=== PATIENT | female | born 1930 | race African-American/Black ===

== ENCOUNTER 2017-02-17 17:08 | Inpatient (IN) | payer MEDICARE, MEDICAID ==
[2017-02-17] MEDS ORDERED: Dextrose 50% Abboject 50 ML SYRINGE SLOW IVP PRN (19:26)
[2017-02-17] MEDS ORDERED: HumaLOG 300 UNITS/3 ML VIAL SC PRN (19:26)
[2017-02-17] MEDS ORDERED: Acetaminophen 325 MG TAB PO PRN ×2 (19:26→21:40)
[2017-02-17] MEDS ORDERED: Acetaminophen 650 MG Suppository PR PRN (19:26)
[2017-02-17] MEDS ORDERED: Dextrose 5% in Water 1,000 ML IV PRN (19:26)
[2017-02-17 19:45] LABS: Prothrombin Time 17.5 SEC (12.0-14.7)
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
[2017-02-17] MEDS ORDERED: Ondansetron HCl/PF 4 MG/2 ML Vial IVP PRN (21:40)
[2017-02-17] MEDS ORDERED: Ondansetron ODT 4 MG TAB SL PRN (21:40)
[2017-02-18] MEDS: Diltiazem HCl 125 MG, Admixture Fee 1 EACH in Sodium Chloride 0.9% 100 ML IVPB SCH ×2 (01:27→16:16)
[2017-02-18] MEDS ORDERED: Metoprolol Tartrate 25 MG TAB PO SCH (04:30)
[2017-02-18] MEDS ORDERED: Metoprolol Tartrate 5 MG/5 ML VIAL IVP SCH (04:30)
[2017-02-18 05:21] LABS: #Eosinphils 0.1 thou/uL (0.0-0.7); #Lymphocytes 1.6 thou/uL (1.20-3.40); #Monocytes 0.4 thou/uL (0.11-0.59); #Neutrophils 1.6 thou/uL (1.40-6.50); %Basophils 0.4 % (0.0-1.0); %Eosinophils 2.9 % (0.0-10.0); %Lymphocytes 43.6 % (21.0-51.0); %Monocytes 10.6 % (0.0-10.0); Hematocrit 37.5 % (36.0-47.0); Mean Platelet Volume 9.2 fL (7.4-10.4); White Blood Cell (WBC) Count 3.7 thou/uL (4.8-10.8)
[2017-02-18 05:33] LABS: Anion Gap 11 mmol/L (10-20); BUN (Urea Nitrogen) 27 mg/dL (9.8-20.1); Calc. Creatinine Clearance 23 mL/min (70-130); Calcium 8.8 mg/dL (7.8-10.44); Carbon Dioxide 26 mmol/L (23-31); Chloride 109 mmol/L (98-107); Estimated GFR-MDRD 55
--- NOTE | 2017-02-18 10:04 | PDOC.PN ---
- Subjective Encounter Start Date: 02/18/17 Encounter Start Time: 07:00 Pt seen for followup re: atrial flutter. Denies chest pain, shortness of breath , fevers or chills. - Objective MAR Reviewed: Yes Vital Signs & Weight: Vital Signs (12 hours) Temp Pulse Resp BP Pulse Ox 02/18/17 04:38 97.8 F 129 H 18 111/71 96 02/18/17 00:01 97.7 F 145 H 18 96 02/18/17 00:00 136 H 121/58 L Weight Weight 90 lb I&O: 02/17/17 02/18/17 02/19/17 06:59 06:59 06:59 Intake Total 290 Output Total 450 Balance -160 Result Diagrams: 02/18/17 04:31 02/18/17 04:31 EKG Reviewed by me: Yes (Tele: atrial flutter) Phys Exam - Physical Examination Constitutional: NAD HEENT: moist MMs, oral pharynx no lesions Neck: supple Respiratory: no wheezing, no rales, no rhonchi, clear to auscultation bilateral Cardiovascular: RRR, no rub Gastrointestinal: soft, positive bowel sounds Musculoskeletal: pulses present Neurological: non-focal, moves all 4 limbs Lymphatic: no nodes Psychiatric: normal affect Deviation from normal: Oriented to person and place, not to time Skin: no rash, normal turgor, cap refill <2 seconds Dx/Plan (1) Atrial flutter Code(s): I48.92 - UNSPECIFIED ATRIAL FLUTTER Status: Acute (2) COPD with hypoxia Code(s): J44.9 - CHRONIC OBSTRUCTIVE PULMONARY DISEASE, UNSPECIFIED; R09.02 - HYPOXEMIA Status: Chronic (3) Chronic diastolic heart failure Code(s): I50.32 - CHRONIC DIASTOLIC (CONGESTIVE) HEART FAILURE Status: Chronic (4) Chronic kidney disease stage 3 Code(s): N18.3 - CHRONIC KIDNEY DISEASE, STAGE 3 (MODERATE) Status: Chronic (5) Dyslipidemia Code(s): E78.5 - HYPERLIPIDEMIA, UNSPECIFIED Status: Chronic (6) Hypertension Code(s): I10 - ESSENTIAL (PRIMARY) HYPERTENSION Status: Chronic (7) Chronic respiratory failure with hypoxia Code(s): J96.11 - CHRONIC RESPIRATORY FAILURE WITH HYPOXIA Status: Chronic (8) Protein-calorie malnutrition Code(s): E46 - UNSPECIFIED PROTEIN-CALORIE MALNUTRITION Status: Chronic - Plan DVT proph w/SCDs * . Continue cardizem drip. Awaiting cardiology input. Continue insulin sliding scale. Consult dietitian, check albumin. O2 PRN. Review of Systems - Review of Systems Constitutional: negative: Fever, Chills, Sweats, Weakness, Malaise Respiratory: negative: Cough, Dry, Shortness of Breath, Hemoptysis, SOB with Excertion, Pleuritic Pain, Sputum, Wheezing Cardiovascular: negative: Chest Pain, Palpitations, Orthopnea, Paroxysmal Noc. Dyspnea, Edema, Light Headedness Gastrointestinal: negative: Nausea, Vomiting, Abdominal Pain, Diarrhea, Constipation, Melena, Hematochezia Genitourinary: negative: Dysuria, Frequency, Incontinence, Hematuria, Retention - Medications/Allergies Allergies/Adverse Reactions: Allergies Allergy/AdvReac Type Severity Reaction Status Date / Time No Known Allergies Allergy Verified 11/30/16 21:58 Medications: Current Medications Acetaminophen (Tylenol) 650 mg PO Q4H PRN PRN Reason: Headache/Fever or Pain Acetaminophen (Tylenol) 650 mg DE Q4H PRN PRN Reason: Headache/Fever or Pain Aspirin (Aspirin) 325 mg PO DAILY [facility] Atorvastatin Calcium (Lipitor) 20 mg PO HS [facility] Dextrose/Water (Dextrose 50%) 25 gm SLOW IVP PRN PRN PRN Reason: Hypoglycemia Diltiazem HCl (Cardizem Cd) 180 mg PO DAILY [facility] Ferrous Gluconate (Fergon) 324 mg PO DAILY [facility] Furosemide (Lasix) 20 mg PO MWF [facility] Glucagon (Glucagon) 1 mg IM PRN PRN PRN Reason: Hypoglycemia Diltiazem HCl 125 mg/Miscellaneous Medication 1 each/ Sodium Chloride 125 mls @ 7.5 mls/hr IVPB INF [facility] PRN Reason: Protocol Last Admin: 02/18/17 01:27 Dose: 125 mls Dextrose/Water (D5w) 1,000 mls @ 0 mls/hr IV .Q0M PRN; As Directed PRN Reason: Hypoglycemia Insulin Human Lispro (Humalog) 0 units SC .MILD SLIDING SCALE PRN PRN Reason: Mild Correctional Scale Isosorbide Mononitrate (Imdur Er) 30 mg PO BID [facility] Lisinopril (Zestril) 2.5 mg PO DAILY [facility] Non-Formulary Medication (Potassium Chloride [Klor-Con M20]) 20 meq PO DAILY [facility] Sodium Chloride (Flush - Normal Saline) 10 ml IVF Q12HR [facility] Last Admin: 02/17/17 22:09 Dose: Not Given Sodium Chloride (Flush - Normal Saline) 10 ml IVF PRN PRN PRN Reason: Saline Flush
--- NOTE | 2017-02-18 13:30 | CON ---
REASON FOR CONSULTATION: Atrial fibrillation, rapid ventricular response. HISTORY OF PRESENT ILLNESS: Ms. Huertas is an unfortunate 86-year-old woman who continues to have read missions for atrial fibrillation/flutter. She states she was feeling in normal state of health when she developed tachycardia. She was seen and evaluated by local provider who felt she need to go to the emergency room. At this point, she states she feels fine, although is on 7.5 mg IV per hour Ca rdizem. PAST MEDICAL HISTORY: As above including recent ablation, severe COPD, hypertension, hyperlipidemia , diabetes mellitus, diastolic heart failure, chronic kidney disease, acid reflux, anemia, and hyper lipidemia. REVIEW OF SYSTEMS: Ten-point review of systems is reviewed and as above, otherwise negative. PHYSICAL EXAMINATION: GENERAL: Patient is a pleasant female who is in no acute distress. She does appear older than stat ed age. VITAL SIGNS: Blood pressure 101/59, pulse 101, and respirations 20. NEUROLOGIC: The patient is alert and oriented times 3 with no focal neurologic deficits. HEENT: Sclerae without icterus. Mouth has moist mucous membranes with normal pallor. NECK: No JVD. Carotid upstroke brisk. No bruits bilaterally. LUNGS: Clear to auscultation with unlabored respirations. BACK: No scoliosis or kyphosis. CARDIAC: Irregularly irregular. ABDOMEN: Soft, nontender, nondistended. No peritoneal signs present. No hepatosplenomegaly. No abnormal striae. EXTREMITIES: 2+ femoral and 2+ dorsalis pedis pulses. No cyanosis, clubbing, or edema. SKIN: No gross abnormalities. PERTINENT LABS: Hemoglobin 11.3 and creatinine 1.11. IMPRESSION: 1. Atrial fibrillation with rapid ventricular response. 2. Minimal symptoms. 3. Severe chronic obstructive pulmonary disease. RECOMMENDATIONS: At this point, we will continue Cardizem, we decreased to 5 mg IV per hour. We wi ll supplement with p.o. We will ask Dr. Lamb to evaluate Ms. Huertas for possible AV kellee ablation wi th pacemaker placement. Given recurrent admissions for similar findings. I have also discussed hos pice with Ms. Huertas in the past and she has not been amenable. Again, I discussed with Ms. Huertas and may need again to be discussed with the primary team.
[2017-02-18 14:32] VITALS: BMI 16.5
[2017-02-18] MEDS: Atorvastatin Calcium 20 MG TAB PO SCH (21:47)
--- NOTE | 2017-02-19 00:43 | CON ---
ELECTROPHYSIOLOGY CONSULTATION REPORT DATE OF CONSULTATION: 02/18/2017 REFERRING PHYSICIAN: Boo Jeff M.D. I am seeing Ms. Huertas at our [facility] telemetry floor as an electrophysiology clinical science consultant. Her problems are: 1. Recurrent atrial flutter. A. History of an electrophysiology study and cavotricuspid isthmus ablation in 11/2016, demonstrati ng cavotricuspid isthmus block, but also inducible non-isthmus dependent flutters. B. This admission with an atrial flutter with rapid rates. 2. Prior history of normal left ventricular ejection fraction with an ejection fraction of 55% to 6 0%, moderate left atrial enlargement, moderate mitral regurgitation and mild to moderate tricuspid r egurgitation on the CASSIE from 12/03/2016. 3. 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 4. History of chronic obstructive pulmonary disease, on home oxygen. 5. History of stage III kidney disease. 6. History of gastroesophageal reflux disease. 7. History of hypertension. 8. History of diastolic heart failure. ALLERGIES: None noted. MEDICATIONS: Prior to admission, she was started on iron supplement, lisinopril, isosorbide mononit rate, diltiazem CD 180 mg a day, potassium chloride, atorvastatin, furosemide and aspirin. SUBJECTIVE: Ms. Lopez is here with recurrent palpitations, was sent in by one of her physicians t o [facility]. She has had some minor palpitations associated with this. Denies chest pains. She did not have any PND, orthopnea or other signs of heart failure or fluid overload. No fever, chill s or cough. REVIEW OF SYSTEMS: The rest of the twelve-point review of systems is unremarkable. PAST MEDICAL HISTORY: As above. SOCIAL HISTORY: The patient denies smoking, EtOH or drug abuse. PAST MEDICAL HISTORY: History of diabetes and pulmonary hypertension also noted. FAMILY HISTORY: Noncontributory. OBJECTIVE DATA: VITAL SIGNS: Blood pressure is 102/59, heart rate 60 and respirations 12. The patient is afebrile. GENERAL: This is an alert and oriented woman in no apparent distress. NECK: Supple. Jugular veins not distended. CHEST: Coarse without crackles. HEART: Sounds are irregular. S1 and S2 are variable. No murmur or gallop. ABDOMEN: Benign. Bowel sounds are positive. EXTREMITIES: Lower extremities without edema, clubbing or cyanosis. DATABASE: The EKG reviewed reveals atypical atrial flutter with variable AV conduction. LABORATORY DATA: White count is 3.7, hemoglobin , and platelet count is 82. INR is 1.4. Sodi um is 142, potassium is 4.1, BUN is 27 and creatinine is 1.1. ASSESSMENT AND PLAN: Ms. Huertas is a pleasant 86-year-old woman with prior history of recurrent atria l flutter, which are likely non-isthmus dependent based on the most recent electrophysiology study. On the other hand, they were pace terminable. She has had no clots on the prior to that in [facility]. Now, she is here with recurrent atrial flutters. Rates are difficult to control. I am not convince d about compliance with her medication regimen. I discussed the treatment options with her. Continue the rate control with AV kellee blocking agents, digoxin is a possibility. Alternatively, we could consider Multaq time, althoug h she might need anticoagulation if we plan to cardiovert her. Also, further possibilities consider adding pacemaker hence her atrial flutter was pace terminable on the electrophysiology study. Once the pacemaker is settled, we could consider an AV kellee ablation as well. Thank you again for allowing me to participate in the care of this patient.
[2017-02-19 05:19] LABS: #Eosinphils 0.1 thou/uL (0.0-0.7); #Lymphocytes 1.5 thou/uL (1.20-3.40); #Monocytes 0.3 thou/uL (0.11-0.59); #Neutrophils 1.5 thou/uL (1.40-6.50); %Basophils 0.9 % (0.0-1.0); %Eosinophils 3.7 % (0.0-10.0); %Lymphocytes 44.1 % (21.0-51.0); Hematocrit 38.9 % (36.0-47.0); Mean Platelet Volume 9.3 fL (7.4-10.4); White Blood Cell (WBC) Count 3.5 thou/uL (4.8-10.8)
[2017-02-19 05:31] LABS: Anion Gap 11 mmol/L (10-20); BUN (Urea Nitrogen) 25 mg/dL (9.8-20.1); Calc. Creatinine Clearance 21 mL/min (70-130); Calcium 8.7 mg/dL (7.8-10.44); Carbon Dioxide 24 mmol/L (23-31); Chloride 107 mmol/L (98-107); Estimated GFR-MDRD 51
[2017-02-19] MEDS: Ferrous Gluconate 324 MG TAB PO SCH (08:38)
[2017-02-19] MEDS: Potassium Chloride 20 MEQ TAB PO SCH (08:38)
[2017-02-19] MEDS: Aspirin 325 MG TAB PO SCH (08:39)
[2017-02-19] MEDS: Lisinopril 2.5 MG TAB PO SCH (08:39)
--- NOTE | 2017-02-19 12:23 | EKG ---
Test Reason : Blood Pressure : / mmHG Vent. Rate : 106 BPM Atrial Rate : 227 BPM P-R Int : 000 ms QRS Dur : 088 ms QT Int : 322 ms P-R-T Axes : 000 048 191 degrees QTc Int : 427 ms Atrial fibrillation with rapid ventricular response Voltage criteria for left ventricular hypertrophy Cannot rule out Inferior infarct , age undetermined Abnormal ECG No ST elevation/AZ Confirmed by DAVE NEWTON ([id number]), publications editor CRUZ OLIVERA ([id number]) on 02/19/2017 12:22:54 PM Referred By: Confirmed By:DAVE NEWTON
--- NOTE | 2017-02-19 12:47 | PDOC.PN ---
- Subjective Encounter Start Date: 02/19/17 Encounter Start Time: 07:40 Pt seen for followup re; atrial fibrillation/flutter. Denies chest pain, shortness of breath, fevers or chills. - Objective MAR Reviewed: Yes Vital Signs & Weight: Vital Signs (12 hours) Temp Pulse Resp BP BP Pulse Ox 02/19/17 08:52 97.8 F 133 H 16 02/19/17 08:39 133 H 149/86 H 02/19/17 08:30 97.8 F 134 H 16 99 02/19/17 04:00 97.7 F 102 H 14 132/79 100 Weight Admit Weight 91 lb Weight 88 lb I&O: 02/18/17 02/19/17 02/20/17 06:59 06:59 06:59 Intake Total 290 1787.9 Output Total 450 700 Balance -160 1087.9 Result Diagrams: 02/19/17 04:27 02/19/17 04:27 Additional Labs: Accuchecks 02/19/17 02/18/17 02/18/17 05:52 20:04 17:27 POC Glucose 103 93 111 H EKG Reviewed by me: Yes (Tele: a. fib/flutter) Phys Exam - Physical Examination Constitutional: NAD HEENT: moist MMs, oral pharynx no lesions Neck: supple Respiratory: no wheezing, no rales, no rhonchi, clear to auscultation bilateral Cardiovascular: RRR, no rub, irregular Gastrointestinal: soft, positive bowel sounds Musculoskeletal: pulses present Neurological: moves all 4 limbs Psychiatric: normal affect Dx/Plan (1) Atrial flutter Code(s): I48.92 - UNSPECIFIED ATRIAL FLUTTER Status: Acute (2) COPD with hypoxia Code(s): J44.9 - CHRONIC OBSTRUCTIVE PULMONARY DISEASE, UNSPECIFIED; R09.02 - HYPOXEMIA Status: Chronic (3) Chronic diastolic heart failure Code(s): I50.32 - CHRONIC DIASTOLIC (CONGESTIVE) HEART FAILURE Status: Chronic (4) Chronic kidney disease stage 3 Code(s): N18.3 - CHRONIC KIDNEY DISEASE, STAGE 3 (MODERATE) Status: Chronic (5) Dyslipidemia Code(s): E78.5 - HYPERLIPIDEMIA, UNSPECIFIED Status: Chronic (6) Hypertension Code(s): I10 - ESSENTIAL (PRIMARY) HYPERTENSION Status: Chronic (7) Chronic respiratory failure with hypoxia Code(s): J96.11 - CHRONIC RESPIRATORY FAILURE WITH HYPOXIA Status: Chronic (8) Protein-calorie malnutrition Code(s): E46 - UNSPECIFIED PROTEIN-CALORIE MALNUTRITION Status: Chronic - Plan DVT proph w/SCDs * . Appreciate EP service input. Continue cardizem drip. Continue aspirin, statin Review of Systems - Review of Systems Constitutional: Other. negative: Fever, Chills, Sweats, Weakness, Malaise Respiratory: negative: Cough, Dry, Shortness of Breath, Hemoptysis, SOB with Excertion, Pleuritic Pain, Sputum, Wheezing Cardiovascular: negative: Chest Pain, Palpitations, Orthopnea, Paroxysmal Noc. Dyspnea, Edema, Light Headedness Gastrointestinal: negative: Nausea, Vomiting, Abdominal Pain, Diarrhea, Constipation, Melena, Hematochezia - Medications/Allergies Allergies/Adverse Reactions: Allergies Allergy/AdvReac Type Severity Reaction Status Date / Time No Known Allergies Allergy Verified 11/30/16 21:58 Medications: Current Medications Acetaminophen (Tylenol) 650 mg PO Q4H PRN PRN Reason: Headache/Fever or Pain Acetaminophen (Tylenol) 650 mg MA Q4H PRN PRN Reason: Headache/Fever or Pain Aspirin (Aspirin) 325 mg PO DAILY [facility] Last Admin: 02/19/17 08:39 Dose: 325 mg Atorvastatin Calcium (Lipitor) 20 mg PO [facility] Last Admin: 02/18/17 21:47 Dose: 20 mg Dextrose/Water (Dextrose 50%) 25 gm SLOW IVP PRN PRN PRN Reason: Hypoglycemia Diltiazem HCl (Cardizem Cd) 180 mg PO DAILY [facility] Last Admin: 02/19/17 08:38 Dose: 180 mg Ferrous Gluconate (Fergon) 324 mg PO [facility] Last Admin: 02/19/17 08:38 Dose: 324 mg Furosemide (Lasix) 20 mg PO [facility] Glucagon (Glucagon) 1 mg IM PRN PRN PRN Reason: Hypoglycemia Diltiazem HCl 125 mg/Miscellaneous Medication 1 each/ Sodium Chloride 125 mls @ 5 mls/hr IVPB INF [facility] PRN Reason: Protocol Last Admin: 02/18/17 16:16 Dose: 125 mls Dextrose/Water (D5w) 1,000 mls @ 0 mls/hr IV .Q0M PRN; As Directed PRN Reason: Hypoglycemia Insulin Human Lispro (Humalog) 0 units SC .MILD SLIDING SCALE PRN PRN Reason: Mild Correctional Scale Isosorbide Mononitrate (Imdur Er) 30 mg PO BID [facility] Last Admin: 02/19/17 08:39 Dose: 30 mg Lisinopril (Zestril) 2.5 mg PO DAILY [facility] Last Admin: 02/19/17 08:39 Dose: 2.5 mg Potassium Chloride (K-Dur) 20 meq PO QAM-WM [facility] Last Admin: 02/19/17 08:38 Dose: 20 meq Sodium Chloride (Flush - Normal Saline) 10 ml IVF Q12HR [facility] Last Admin: 02/19/17 08:39 Dose: 10 ml Sodium Chloride (Flush - Normal Saline) 10 ml IVF PRN PRN PRN Reason: Saline Flush
--- NOTE | 2017-02-19 14:58 | PDOC.CTH ---
"<Erica Russell - Last Filed: 02/19/17 15:20> Cardiology Progress Note - Subjective the pt was seen and examined. No overnight events. No cardiac complaints. Hx of HR up to 140s this AM; went down to 90-100s after she administered diltiazem PO; she still on Diliazem IV 5mg/h - Objective Vital Signs Temp Pulse Resp BP BP Pulse Ox 02/19/17 12:00 97.2 F L 94 16 136/95 H 95 02/19/17 08:52 97.8 F 133 H 16 02/19/17 08:39 133 H 149/86 H 02/19/17 08:30 97.8 F 134 H 16 99 02/19/17 04:00 97.7 F 102 H 14 132/79 100 Admit Weight 91 lb Weight 88 lb 02/18/17 02/19/17 02/20/17 06:59 06:59 06:59 Intake Total 290 1787.9 Output Total 450 700 Balance -160 1087.9 - Physical Examination General/Neuro: alert & oriented x3 Neck: no JVD present Lungs: CTA, other: (diminished at bases) Heart: other: (irregular) Extremities: other: (No edema) - Telemetry Telemetry Rhythm: afib - Labs Result Diagrams: 02/19/17 04:27 02/19/17 04:27 Troponin/CKMB CK-MB (CK-2) 2.3 ng/mL (0-6.6) 02/17/17 19:30 Troponin I 0.120 ng/mL (< 0.028) H 02/17/17 19:30 - Assessment/Plan 1. Atrial flutter/A fib - Hx of hr up to 140s today; on Diltiazem 180 mg PO and drip 5mg/h; Increase Dilitazem to 240mg Daily; on ASA 325mg; Hx of multiple fall according to the pt; consulted by EP 2. Chronic diastolic HF - stable with current medication 3. HTN - stable with current medication 4. CKD stage 3 - stable 5. Dyslipidemia - on statin med 6. COPD - on 2LNC with breathing treatment 7. malnutrition - strongly encourage more calories intake MAR reviewed Review of Systems - Review of Systems Constitutional: reports: no symptoms reported EENTM: reports: no symptoms reported Respiratory: reports: no symptoms reported Cardiac (ROS): reports: no symptoms reported ABD/GI: reports: no symptoms reported : reports: no symptoms reported <Mercy Pierce - Last Filed: 02/19/17 20:15> Cardiology Progress Note - Objective Vital Signs Temp Pulse Resp BP BP BP Pulse Ox 02/19/17 16:25 98.7 F 92 16 114/70 95 02/19/17 12:00 97.2 F L 94 16 136/95 H 95 02/19/17 08:52 97.8 F 133 H 16 02/19/17 08:39 133 H 149/86 H 02/19/17 08:30 97.8 F 134 H 16 99 Admit Weight 91 lb Weight 88 lb 02/18/17 02/19/17 02/20/17 06:59 06:59 06:59 Intake Total 290 1787.9 850 Output Total 450 700 200 Balance -160 1087.9 650 - Labs Result Diagrams: 02/19/17 04:27 02/19/17 04:27 Troponin/CKMB CK-MB (CK-2) 2.3 ng/mL (0-6.6) 02/17/17 19:30 Troponin I 0.120 ng/mL (< 0.028) H 02/17/17 19:30 - Assessment/Plan Pt. seen and evaluated by me. 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 I agree with the A|P. Start digoxin for rate control."
[2017-02-19] MEDS ORDERED: Digoxin 0.5 MG/2 ML AMP SLOW IVP SCH (20:15)
[2017-02-19] MEDS: Atorvastatin Calcium 20 MG TAB PO SCH (21:00)
[2017-02-20] MEDS: Digoxin 0.5 MG/2 ML AMP SLOW IVP SCH ×2 (03:36→09:10)
[2017-02-20 05:30] LABS: #Eosinphils 0.1 thou/uL (0.0-0.7); #Lymphocytes 1.3 thou/uL (1.20-3.40); #Monocytes 0.3 thou/uL (0.11-0.59); #Neutrophils 1.8 thou/uL (1.40-6.50); %Basophils 0.4 % (0.0-1.0); %Eosinophils 3.1 % (0.0-10.0); %Lymphocytes 37.9 % (21.0-51.0); %Monocytes 9.3 % (0.0-10.0); Hematocrit 38.1 % (36.0-47.0); Mean Platelet Volume 9.5 fL (7.4-10.4); White Blood Cell (WBC) Count 3.5 thou/uL (4.8-10.8)
[2017-02-20 05:59] LABS: Anion Gap 10 mmol/L (10-20); BUN (Urea Nitrogen) 23 mg/dL (9.8-20.1); Calc. Creatinine Clearance 23 mL/min (70-130); Calcium 8.5 mg/dL (7.8-10.44); Carbon Dioxide 26 mmol/L (23-31); Chloride 108 mmol/L (98-107); Estimated GFR-MDRD 55
[2017-02-20] MEDS: Potassium Chloride 20 MEQ TAB PO SCH (09:14)
[2017-02-20] MEDS: Aspirin 325 MG TAB PO SCH (09:14)
[2017-02-20] MEDS: Ferrous Gluconate 324 MG TAB PO SCH (09:14)
[2017-02-20] MEDS: Lisinopril 2.5 MG TAB PO SCH (09:28)
--- NOTE | 2017-02-20 13:25 | PDOC.PN ---
- Subjective Encounter Start Date: 02/20/17 Encounter Start Time: 10:20 Pt seen for followup re: atrial fibrillation. denies chest pain, hsortness of breath, fevers or chills. - Objective MAR Reviewed: Yes Vital Signs & Weight: Vital Signs (12 hours) Temp Pulse Resp BP BP Pulse Ox 02/20/17 11:25 98 F 84 20 183/91 H 95 02/20/17 09:28 75 181/82 H 02/20/17 09:14 75 02/20/17 09:10 75 02/20/17 08:00 97.6 F 64 16 177/84 H 100 02/20/17 04:00 98.2 F 63 18 149/69 H 100 02/20/17 03:36 92 Weight Admit Weight 91 lb Weight 92 lb I&O: 02/19/17 02/20/17 02/21/17 06:59 06:59 06:59 Intake Total 1787.9 1390 Output Total 700 800 Balance 1087.9 590 Result Diagrams: 02/20/17 04:55 02/20/17 04:55 Additional Labs: Accuchecks 02/20/17 02/20/17 02/19/17 11:11 05:45 21:04 POC Glucose 93 73 138 H 02/19/17 02/19/17 16:17 12:13 POC Glucose 72 74 EKG Reviewed by me: Yes (Tele: NSR) Phys Exam - Physical Examination Constitutional: NAD HEENT: moist MMs Neck: supple Respiratory: no wheezing, no rales, no rhonchi, clear to auscultation bilateral Cardiovascular: RRR Gastrointestinal: soft Musculoskeletal: pulses present Neurological: moves all 4 limbs Psychiatric: normal affect Skin: no rash Dx/Plan (1) Atrial fibrillation Code(s): I48.91 - UNSPECIFIED ATRIAL FIBRILLATION Status: Acute (2) COPD with hypoxia Code(s): J44.9 - CHRONIC OBSTRUCTIVE PULMONARY DISEASE, UNSPECIFIED; R09.02 - HYPOXEMIA Status: Chronic (3) Chronic diastolic heart failure Code(s): I50.32 - CHRONIC DIASTOLIC (CONGESTIVE) HEART FAILURE Status: Chronic (4) Chronic kidney disease stage 3 Code(s): N18.3 - CHRONIC KIDNEY DISEASE, STAGE 3 (MODERATE) Status: Chronic (5) Dyslipidemia Code(s): E78.5 - HYPERLIPIDEMIA, UNSPECIFIED Status: Chronic (6) Hypertension Code(s): I10 - ESSENTIAL (PRIMARY) HYPERTENSION Status: Chronic (7) Chronic respiratory failure with hypoxia Code(s): J96.11 - CHRONIC RESPIRATORY FAILURE WITH HYPOXIA Status: Chronic (8) Protein-calorie malnutrition Code(s): E46 - UNSPECIFIED PROTEIN-CALORIE MALNUTRITION Status: Chronic - Plan PT/OT, out of bed/ambulate, DVT proph w/SCDs * . Pt converted to NSR around 5 AM, continue to monitor. Discontinue cardizem. Mobilize pt. Review of Systems - Review of Systems Constitutional: negative: Fever, Chills, Sweats, Weakness, Malaise Respiratory: negative: Cough, Dry, Shortness of Breath, Hemoptysis, SOB with Excertion, Pleuritic Pain, Sputum, Wheezing Cardiovascular: negative: Chest Pain, Palpitations, Orthopnea, Paroxysmal Noc. Dyspnea, Edema, Light Headedness Gastrointestinal: negative: Nausea, Vomiting, Abdominal Pain, Diarrhea, Constipation, Melena, Hematochezia - Medications/Allergies Allergies/Adverse Reactions: Allergies Allergy/AdvReac Type Severity Reaction Status Date / Time No Known Allergies Allergy Verified 11/30/16 21:58 Medications: Current Medications Acetaminophen (Tylenol) 650 mg PO Q4H PRN PRN Reason: Headache/Fever or Pain Last Admin: 02/20/17 09:50 Dose: 650 mg Acetaminophen (Tylenol) 650 mg OR Q4H PRN PRN Reason: Headache/Fever or Pain Aspirin (Aspirin) 325 mg PO DAILY [facility] Last Admin: 02/20/17 09:14 Dose: 325 mg Atorvastatin Calcium (Lipitor) 20 mg PO HS [facility] Last Admin: 02/19/17 21:00 Dose: 20 mg Dextrose/Water (Dextrose 50%) 25 gm SLOW IVP PRN PRN PRN Reason: Hypoglycemia Digoxin (Lanoxin) 0.125 mg PO QAM [facility] Diltiazem HCl (Cardizem Cd) 240 mg PO DAILY [facility] Last Admin: 02/20/17 09:14 Dose: 240 mg Ferrous Gluconate (Fergon) 324 mg PO QAM[facility] Last Admin: 02/20/17 09:14 Dose: 324 mg [facility]urosemide (Lasix) [facility] Glucagon (Glucagon) 1 mg IM PRN PRN PRN Reason: Hypoglycemia Dextrose/Water (D5w) 1,000 mls @ 0 mls/hr IV .Q0M PRN; As Directed PRN Reason: Hypoglycemia Insulin Human Lispro (Humalog) 0 units SC .MILD SLIDING SCALE PRN PRN Reason: Mild Correctional Scale Isosorbide Mononitrate (Imdur Er) 30 mg PO BID [facility] Last Admin: 02/20/17 09:14 Dose: 30 mg Lisinopril (Zestril) 2.5 mg PO DAILY [facility] Last Admin: 02/20/17 09:28 Dose: 2.5 mg Potassium Chloride (K-Dur) 20 meq PO QAM-WM [facility] Last Admin: 02/20/17 09:14 Dose: 20 meq Sodium Chloride (Flush - Normal Saline) 10 ml IVF Q12HR [facility] Last Admin: 02/20/17 09:15 Dose: 10 ml Sodium Chloride (Flush - Normal Saline) 10 ml IVF PRN PRN PRN Reason: Saline Flush
--- NOTE | 2017-02-20 17:20 | PDOC.CTH ---
<Erica Russell - Last Filed: 02/20/17 17:20> Cardiology Progress Note - Subjective the pt was seen and examined. No overnight events. No cardiac complaints. She complains of pain in her hand. Her HR converted back to SR around 0500 this AM - Objective Vital Signs Temp Pulse Resp BP BP Pulse Ox 02/20/17 11:25 98 F 84 20 183/91 H 95 02/20/17 09:28 75 181/82 H 02/20/17 09:14 75 02/20/17 09:10 75 02/20/17 08:00 97.6 F 64 16 177/84 H 100 Admit Weight 91 lb Weight 92 lb 02/19/17 02/20/17 02/21/17 06:59 06:59 06:59 Intake Total 1787.9 1390 Output Total 700 800 Balance 1087.9 590 - Physical Examination General/Neuro: other: (alerted to self) Neck: no JVD present Lungs: other: (diminished at bases) Heart: RRR Abdomen: soft Extremities: other: (No edema) - Telemetry Telemetry Rhythm: SR - Labs Result Diagrams: 02/20/17 04:55 02/20/17 04:55 Troponin/CKMB CK-MB (CK-2) 2.3 ng/mL (0-6.6) 02/17/17 19:30 Troponin I 0.120 ng/mL (< 0.028) H 02/17/17 19:30 - Assessment/Plan 1. Atrial flutter/A fib - Converted to NSR around 0500 in this AM; Off Diltiazen IV due to HR down to 50s; on Diltiazem 240 mg PO and ASA 325mg; Hx of multiple fall according to the pt; consulted by EP 2. Chronic diastolic HF - stable with current medication 3. HTN - last SBP was 130s according to RN's report; Add Clonidine 0.1mg q6h PRN for SBP > 170; 4. CKD stage 3 - Cr level is better than yesterday; cont. monitor 5. Dyslipidemia - on statin med 6. COPD - on 2LNC with breathing treatment 7. malnutrition - strongly encourage more calories intake MAR reviewed * Add Clonidine 0.1mg q6h PRN for SBP > 170; Review of Systems - Review of Systems Constitutional: reports: no symptoms reported EENTM: reports: no symptoms reported Respiratory: reports: no symptoms reported Cardiac (ROS): reports: no symptoms reported ABD/GI: reports: no symptoms reported : reports: no symptoms reported Musculoskeletal: reports: see HPI <Mercy Pierce - Last Filed: 02/20/17 22:29> Cardiology Progress Note - Objective Vital Signs Temp Pulse Resp BP Pulse Ox 02/20/17 19:35 98 F 62 20 137/72 99 02/20/17 16:35 97.1 F L 61 16 131/71 100 02/20/17 11:25 98 F 84 20 183/91 H 95 Admit Weight 91 lb Weight 92 lb 02/19/17 02/20/17 02/21/17 06:59 06:59 06:59 Intake Total 1787.9 1390 960 Output Total 479 077 0640 Balance 1087.9 590 -90 - Labs Result Diagrams: 02/20/17 04:55 02/20/17 04:55 Troponin/CKMB CK-MB (CK-2) 2.3 ng/mL (0-6.6) 02/17/17 19:30 Troponin I 0.120 ng/mL (< 0.028) H 02/17/17 19:30 - Assessment/Plan Pt. seen and evaluated. i agree with the A/P by the HISTORICAL GUIDE
[2017-02-20] MEDS ORDERED: cloNIDine HCl 0.1 MG TAB PO PRN (17:25)
[2017-02-20] MEDS: Atorvastatin Calcium 20 MG TAB PO SCH (21:01)
[2017-02-21] MEDS ORDERED: Furosemide 20 MG TAB PO SCH (09:00)
[2017-02-21] MEDS: Aspirin 325 MG TAB PO SCH ×2 (09:37→11:55)
[2017-02-21] MEDS: Digoxin 0.125 MG TAB PO SCH (09:37)
[2017-02-21] MEDS: Lisinopril 2.5 MG TAB PO SCH (09:38)
[2017-02-21] MEDS: Ferrous Gluconate 324 MG TAB PO SCH (09:38)
[2017-02-21] MEDS: Potassium Chloride 20 MEQ TAB PO SCH (09:38)
--- NOTE | 2017-02-21 10:57 | PDOC.PN ---
- Subjective Encounter Start Date: 02/21/17 Encounter Start Time: 08:00 Pt seen for followup re; atrial fibrillation. Denies chest pain, nausea, vomiting or diarrhea. - Objective MAR Reviewed: Yes Vital Signs & Weight: Vital Signs (12 hours) Temp Pulse Resp BP BP BP Pulse Ox 02/21/17 09:39 80 129/64 02/21/17 09:38 80 129/64 02/21/17 09:37 80 02/21/17 07:25 97.7 F 76 16 129/76 97 02/21/17 03:50 98.2 F 71 20 140/75 100 02/20/17 23:05 98.6 F 60 20 160/70 H 100 Weight Admit Weight 91 lb Weight 85 lb 12.8 oz I&O: 02/20/17 02/21/17 02/22/17 06:59 06:59 06:59 Intake Total 1390 1240 Output Total 800 2150 Balance 590 -910 Result Diagrams: 02/20/17 04:55 02/20/17 04:55 Additional Labs: Accuchecks 02/21/17 02/20/17 02/20/17 05:39 20:12 16:57 POC Glucose 88 103 73 02/20/17 11:11 POC Glucose 93 EKG Reviewed by me: Yes (Tele: NSR) Phys Exam - Physical Examination Constitutional: NAD HEENT: moist MMs, oral pharynx no lesions Neck: supple Respiratory: clear to auscultation bilateral Cardiovascular: RRR Neurological: moves all 4 limbs Psychiatric: normal affect Dx/Plan (1) Atrial fibrillation Code(s): I48.91 - UNSPECIFIED ATRIAL FIBRILLATION Status: Acute (2) COPD with hypoxia Code(s): J44.9 - CHRONIC OBSTRUCTIVE PULMONARY DISEASE, UNSPECIFIED; R09.02 - HYPOXEMIA Status: Chronic (3) Chronic diastolic heart failure Code(s): I50.32 - CHRONIC DIASTOLIC (CONGESTIVE) HEART FAILURE Status: Chronic (4) Chronic kidney disease stage 3 Code(s): N18.3 - CHRONIC KIDNEY DISEASE, STAGE 3 (MODERATE) Status: Chronic (5) Dyslipidemia Code(s): E78.5 - HYPERLIPIDEMIA, UNSPECIFIED Status: Chronic (6) Hypertension Code(s): I10 - ESSENTIAL (PRIMARY) HYPERTENSION Status: Chronic (7) Chronic respiratory failure with hypoxia Code(s): J96.11 - CHRONIC RESPIRATORY FAILURE WITH HYPOXIA Status: Chronic (8) Protein-calorie malnutrition Code(s): E46 - UNSPECIFIED PROTEIN-CALORIE MALNUTRITION Status: Chronic - Plan PT/OT, out of bed/ambulate, DVT proph w/heparin * . Pt converted to sinus rhythm, await cardiology/EP recommendations. Ambulate pt. Likely home 1-2 days. Review of Systems - Review of Systems Constitutional: negative: Fever, Chills, Sweats, Weakness, Malaise Respiratory: negative: Cough, Dry, Shortness of Breath, Hemoptysis, SOB with Excertion, Pleuritic Pain, Sputum, Wheezing Cardiovascular: negative: Chest Pain, Palpitations, Orthopnea, Paroxysmal Noc. Dyspnea, Edema, Light Headedness, Other - Medications/Allergies Allergies/Adverse Reactions: Allergies Allergy/AdvReac Type Severity Reaction Status Date / Time No Known Allergies Allergy Verified 11/30/16 21:58 Medications: Current Medications Acetaminophen (Tylenol) 650 mg PO Q4H PRN PRN Reason: Headache/Fever or Pain Last Admin: 02/20/17 09:50 Dose: 650 mg Acetaminophen (Tylenol) 650 mg DE Q4H PRN PRN Reason: Headache/Fever or Pain Aspirin (Aspirin) 325 mg PO DAILY [facility] Last Admin: 02/20/17 09:14 Dose: 325 mg Atorvastatin Calcium (Lipitor) 20 mg PO HS [facility] Last Admin: 02/20/17 21:01 Dose: 20 mg Clonidine HCl (Catapres) 0.1 mg PO Q6H PRN PRN Reason: for SBP > 170 Dextrose/Water (Dextrose 50%) 25 gm SLOW IVP PRN PRN PRN Reason: Hypoglycemia Digoxin (Lanoxin) 0.125 mg PO QAM [facility] Last Admin: 02/21/17 09:37 Dose: 0.125 mg Diltiazem HCl (Cardizem Cd) 240 mg PO DAILY [facility] Last Admin: 02/21/17 09:39 Dose: 240 mg Ferrous Gluconate (Fergon) 324 mg PO QAM[facility] Last Admin: 02/21/17 09:38 Dose: 324 mg Furosemide (Lasix) 20 mg PO MWF [facility] Last Admin: 02/21/17 09:38 Dose: 20 mg Glucagon (Glucagon) 1 mg IM PRN PRN PRN Reason: Hypoglycemia Dextrose/Water (D5w) 1,000 mls @ 0 mls/hr IV .Q0M PRN; As Directed PRN Reason: Hypoglycemia Insulin Human Lispro (Humalog) 0 units SC .MILD SLIDING SCALE PRN PRN Reason: Mild Correctional Scale Isosorbide Mononitrate (Imdur Er) 30 mg PO BID [facility] Last Admin: 02/21/17 09:39 Dose: 30 mg Lisinopril (Zestril) 2.5 mg PO DAILY [facility] Last Admin: 02/21/17 09:38 Dose: 2.5 mg Potassium Chloride (K-Dur) 20 meq PO QAM-WM [facility] Last Admin: 02/21/17 09:38 Dose: 20 meq Sodium Chloride (Flush - Normal Saline) 10 ml IVF Q12HR [facility] Last Admin: 02/21/17 09:40 Dose: 10 ml Sodium Chloride (Flush - Normal Saline) 10 ml IVF PRN PRN PRN Reason: Saline Flush
--- NOTE | 2017-02-21 16:45 | PDOC.CTH ---
<Erica Russell - Last Filed: 02/21/17 16:43> Cardiology Progress Note - Subjective The pt was seen and examined. No overnight events. No cardiac complaints. She feels fatigue and very sleepy. - Objective Vital Signs Temp Pulse Resp BP BP BP Pulse Ox 02/21/17 16:07 97.5 F L 64 16 139/70 98 02/21/17 12:00 97.7 F 76 16 129/76 98 02/21/17 09:39 80 129/64 02/21/17 09:38 80 129/64 02/21/17 09:37 80 02/21/17 08:40 97.7 F 80 16 98 02/21/17 07:25 97.7 F 76 16 129/76 97 Admit Weight 91 lb Weight 85 lb 12.8 oz 02/20/17 02/21/17 02/22/17 06:59 06:59 06:59 Intake Total 1390 1240 Output Total 800 2150 Balance 590 -910 - Physical Examination General/Neuro: other: (oriented to self) Neck: no JVD present Lungs: CTA (diminished at bases) Heart: RRR Abdomen: soft Extremities: other: (No edema) - Telemetry Telemetry Rhythm: SR 60s - Labs Result Diagrams: 02/20/17 04:55 02/20/17 04:55 Troponin/CKMB CK-MB (CK-2) 2.3 ng/mL (0-6.6) 02/17/17 19:30 Troponin I 0.120 ng/mL (< 0.028) H 02/17/17 19:30 - Assessment/Plan 1. Atrial flutter/A fib - Remain NSR since yesterday around 0500 with Diltiazem 240 mg PO and ASA 325mg; Hx of multiple fall according to the pt; consulted by EP 2. Chronic diastolic HF - stable with current medication 3. HTN - stable with current medication 4. CKD stage 3 - cont. monitor 5. Dyslipidemia - on statin med 6. COPD - on 2LNC with breathing treatment 7. malnutrition - strongly encourage more calories intake MAR reviewed Review of Systems - Review of Systems Constitutional: reports: no symptoms reported EENTM: reports: no symptoms reported Respiratory: reports: no symptoms reported Cardiac (ROS): reports: no symptoms reported ABD/GI: reports: no symptoms reported <Pierce,G Lucas - Last Filed: 02/21/17 17:01> Cardiology Progress Note - Objective Vital Signs Temp Pulse Resp BP BP BP Pulse Ox 02/21/17 16:07 97.5 F L 64 16 139/70 98 02/21/17 12:00 97.7 F 76 16 129/76 98 02/21/17 09:39 80 129/64 02/21/17 09:38 80 129/64 02/21/17 09:37 80 02/21/17 08:40 97.7 F 80 16 98 02/21/17 07:25 97.7 F 76 16 129/76 97 Admit Weight 91 lb Weight 85 lb 12.8 oz 02/20/17 02/21/17 02/22/17 06:59 06:59 06:59 Intake Total 1390 1240 Output Total 800 2150 Balance 590 -910 - Labs Result Diagrams: 02/20/17 04:55 02/20/17 04:55 Troponin/CKMB CK-MB (CK-2) 2.3 ng/mL (0-6.6) 02/17/17 19:30 Troponin I 0.120 ng/mL (< 0.028) H 02/17/17 19:30 - Assessment/Plan Pt. seen and evaluated by me. I agree with the A/P by the STOREROOM KEEPER.
[2017-02-21] MEDS: Atorvastatin Calcium 20 MG TAB PO SCH (20:37)
[2017-02-22] MEDS: Aspirin 325 MG TAB PO SCH (09:09)
[2017-02-22] MEDS: Ferrous Gluconate 324 MG TAB PO SCH (09:10)
[2017-02-22] MEDS: Digoxin 0.125 MG TAB PO SCH (09:10)
[2017-02-22] MEDS: Lisinopril 2.5 MG TAB PO SCH (09:11)
[2017-02-22] MEDS: Potassium Chloride 20 MEQ TAB PO SCH (09:11)
--- NOTE | 2017-02-22 11:40 | PDOC.PN ---
- Subjective Encounter Start Date: 02/22/17 Encounter Start Time: 07:20 Pt seen for followup re: atrial fibrillation. Denies chest pain, shortness of breath, fevers or chills. No nausea or vomiting. - Objective Resuscitation Status: Resuscitation Status DNR:Do Not Resuscitate MAR Reviewed: Yes Vital Signs & Weight: Vital Signs (12 hours) Temp Pulse Resp BP BP BP Pulse Ox 02/22/17 09:11 90 117/67 02/22/17 09:10 90 02/22/17 09:09 90 117/67 02/22/17 08:55 97.9 F 90 16 100 02/22/17 08:48 97.9 F 90 16 117/67 100 02/22/17 03:20 97.9 F 76 20 142/71 H 99 02/22/17 00:00 20 Weight Admit Weight 91 lb Weight 87 lb I&O: 02/21/17 02/22/17 02/23/17 06:59 06:59 06:59 Intake Total 1240 440 150 Output Total 2150 1700 1000 Balance -910 -1260 -850 Result Diagrams: 02/20/17 04:55 02/20/17 04:55 Additional Labs: Accuchecks 02/22/17 02/21/17 02/21/17 05:29 20:57 16:12 POC Glucose 83 74 76 02/21/17 02/21/17 13:27 11:37 POC Glucose 95 62 L EKG Reviewed by me: Yes (Tele: NSR) Phys Exam - Physical Examination Constitutional: NAD HEENT: moist MMs, oral pharynx no lesions Neck: supple Respiratory: clear to auscultation bilateral Cardiovascular: RRR Gastrointestinal: soft Neurological: moves all 4 limbs Psychiatric: normal affect Skin: no rash Dx/Plan (1) Atrial fibrillation Code(s): I48.91 - UNSPECIFIED ATRIAL FIBRILLATION Status: Acute (2) COPD with hypoxia Code(s): J44.9 - CHRONIC OBSTRUCTIVE PULMONARY DISEASE, UNSPECIFIED; R09.02 - HYPOXEMIA Status: Chronic (3) Chronic diastolic heart failure Code(s): I50.32 - CHRONIC DIASTOLIC (CONGESTIVE) HEART FAILURE Status: Chronic (4) Chronic kidney disease stage 3 Code(s): N18.3 - CHRONIC KIDNEY DISEASE, STAGE 3 (MODERATE) Status: Chronic (5) Dyslipidemia Code(s): E78.5 - HYPERLIPIDEMIA, UNSPECIFIED Status: Chronic (6) Hypertension Code(s): I10 - ESSENTIAL (PRIMARY) HYPERTENSION Status: Chronic (7) Chronic respiratory failure with hypoxia Code(s): J96.11 - CHRONIC RESPIRATORY FAILURE WITH HYPOXIA Status: Chronic (8) Protein-calorie malnutrition Code(s): E46 - UNSPECIFIED PROTEIN-CALORIE MALNUTRITION Status: Chronic - Plan PT/OT, out of bed/ambulate * . Continue diltiazem, aspirin. Likely home later today or tomoorow. Review of Systems - Review of Systems Constitutional: negative: Fever, Chills, Sweats, Weakness, Malaise Respiratory: negative: Cough, Dry, Shortness of Breath, Hemoptysis, SOB with Excertion, Pleuritic Pain, Sputum, Wheezing Cardiovascular: Other. negative: Chest Pain, Palpitations, Orthopnea, Paroxysmal Noc. Dyspnea, Edema, Light Headedness - Medications/Allergies Allergies/Adverse Reactions: Allergies Allergy/AdvReac Type Severity Reaction Status Date / Time No Known Allergies Allergy Verified 11/30/16 21:58 Medications: Current Medications Acetaminophen (Tylenol) 650 mg PO Q4H PRN PRN Reason: Headache/Fever or Pain Last Admin: 02/20/17 09:50 Dose: 650 mg Acetaminophen (Tylenol) 650 mg [place] Q4H PRN PRN Reason: Headache/Fever or Pain Aspirin (Aspirin) 325 mg PO DAILY [facility] Last Admin: 02/22/17 09:09 Dose: 325 mg Atorvastatin Calcium (Lipitor) 20 mg PO HS [facility] Last Admin: 02/21/17 20:37 Dose: 20 mg Clonidine HCl (Catapres) 0.1 mg PO Q6H PRN PRN Reason: for SBP > 170 Dextrose/Water (Dextrose 50%) 25 gm SLOW IVP PRN PRN PRN Reason: Hypoglycemia Digoxin (Lanoxin) 0.125 mg PO QAM [facility] Last Admin: 02/22/17 09:10 Dose: 0.125 mg Diltiazem HCl (Cardizem Cd) 240 mg PO DAILY [facility] Last Admin: 02/22/17 09:09 Dose: 240 mg Ferrous Gluconate (Fergon) 324 mg PO QAM-WM [facility] Last Admin: 02/22/17 09:10 Dose: 324 mg Furosemide (Lasix) 20 mg PO MWF [facility] Last Admin: 02/21/17 09:38 Dose: 20 mg Glucagon (Glucagon) 1 mg IM PRN PRN PRN Reason: Hypoglycemia Dextrose/Water (D5w) 1,000 mls @ 0 mls/hr IV .Q0M PRN; As Directed PRN Reason: Hypoglycemia Insulin Human Lispro (Humalog) 0 units SC .MILD SLIDING SCALE PRN PRN Reason: Mild Correctional Scale Isosorbide Mononitrate (Imdur Er) 30 mg PO BID [facility] Last Admin: 02/22/17 09:09 Dose: 30 mg Lisinopril (Zestril) 2.5 mg PO DAILY [facility] Last Admin: 02/22/17 09:11 Dose: 2.5 mg Potassium Chloride (K-Dur) 20 meq PO QAM-WM [facility] Last Admin: 02/22/17 09:11 Dose: 20 meq Sodium Chloride (Flush - Normal Saline) 10 ml IVF Q12HR [facility] Last Admin: 02/22/17 09:12 Dose: 10 ml Sodium Chloride (Flush - Normal Saline) 10 ml IVF PRN PRN PRN Reason: Saline Flush
--- NOTE | 2017-02-22 14:22 | PRG ---
ELECTROPHYSIOLOGY FOLLOWUP NOTE DATE OF SERVICE: 02/22/2017 SUBJECTIVE: Ms. Huertas is doing well, feeling better today. OBJECTIVE DATA: VITAL SIGNS: Blood pressure is 158/81, heart rate 70, respiration 16, temperature 97.8 degrees Fahr enheit. GENERAL: This is an alert and oriented elderly woman in no apparent distress. NECK: Supple. Jugular veins not distended. CHEST: Coarse. No crackles. CARDIOVASCULAR: Heart sounds are regular to rate and rhythm. No murmur or gallop. ABDOMEN: Benign. Bowel sounds positive. EXTREMITIES: Lower extremities without edema, clubbing or cyanosis. DATABASE: EKG today reveals sinus rhythm with nonspecific repolarization changes. ASSESSMENT AND PLAN: Ms. Huertas is an 86-year-old woman with history of atrial fibrillation, prior CT I ablation in the past. She has had recurrent atypical atrial flutters and was admitted with this t [place]. Her rate control was poor. Eventually, diltiazem initiated with the IV reloading dose. With that, she spontaneously was converted back to sinus rhythm. PLAN: 1. It is reasonable to continue diltiazem. If still recurrent episodes occur, we could consider raquel Forrest on her. I did discuss the utility of pacing possibly for antitachycardia pacing versus AV kellee ablation if all other efforts fail in the future. For now, she is refusing pacemaker. I h ave to see her back as an outpatient. 2. Thrombocytopenia. Difficult proposition for putting her on anticoagulants. 3. Frail elderly patient prefers nonaggressive intervention at this time.
--- NOTE | 2017-02-22 15:03 | PDOC.CTH ---
Cardiology Progress Note - Subjective No complaints today. Seen sitting up in chair. Doing well. She was offered pacer and had declined - Objective Vital Signs Temp Pulse Resp BP BP BP Pulse Ox 02/22/17 11:45 97.8 F 78 16 158/81 H 99 02/22/17 09:11 90 117/67 02/22/17 09:10 90 02/22/17 09:09 90 117/67 02/22/17 08:55 97.9 F 90 16 100 02/22/17 08:48 97.9 F 90 16 117/67 100 02/22/17 03:20 97.9 F 76 20 142/71 H 99 Admit Weight 91 lb Weight 87 lb 02/21/17 02/22/17 02/23/17 06:59 06:59 06:59 Intake Total 1240 440 150 Output Total 2150 1700 1000 Balance -910 -1260 -850 - Physical Examination General/Neuro: alert & oriented x3, NAD Neck: no JVD present Lungs: other: (raled, rhonchi(chronic)) Heart: PMI normal, RRR Abdomen: no HSM, NT/ND, soft Extremities: + femoral B - Telemetry Telemetry Rhythm: SR - Labs Result Diagrams: 02/20/17 04:55 02/20/17 04:55 Troponin/CKMB CK-MB (CK-2) 2.3 ng/mL (0-6.6) 02/17/17 19:30 Troponin I 0.120 ng/mL (< 0.028) H 02/17/17 19:30 - Assessment/Plan 1. Afib with RVR-Pt felt to be a good candidate for AVNA with pacer. Pt declined. Complinace is an issue and likely reason she continues to be re- admitted for afib with RVR. She did state if this happens agian, she open to idea of PM. Continue current treatment with CCB, multaq for now. ok to go home from my standpoint. Fu with me in one to two weeks
[2017-02-22 16:20] VITALS: BP 136/69; TEMP 98
[2017-02-22] MEDS ORDERED: Dronedarone HCl 400 MG TAB PO SCH (17:00)
--- NOTE | 2017-02-22 23:06 | DIS ---
PRIMARY CARE PHYSICIAN: Rani Trujillo M.D. DATE OF ADMISSION: 02/17/2017 DATE OF DISCHARGE: 02/22/2017 DISCHARGE DIAGNOSES: 1. Atrial fibrillation with rapid ventricular response converted to normal sinus rhythm. 2. Chronic diastolic heart failure. 3. Chronic kidney disease. CONDITION OF PATIENT AT THE TIME OF DISCHARGE: Stable. I assessed Ms. Huertas on the day of discharge. Please refer to my hospitalist progress note from 02/22/2017 for further information of this [id number] encounter. DISCHARGE MEDICATIONS: Cardizem CD dose increased to 240 mg daily, Multaq 400 mg 2 times a day, started during this hospitalization. Otherwise, home medications resumed including aspirin 325 mg daily; Lipitor 20 mg at bedtime; ferrous gluconate 324 mg daily; Lasix 20 mg Tuesday, Tuesday, and Tuesday; isosorbide mononitrate 30 mg 2 times a day; lisinopril 2.5 mg daily; and potassium chloride dose changed to 10 mEq Tuesday, Tuesday, and Tuesday. HOSPITAL COURSE: Ms. Huertas is a pleasant 86-year-old lady who was admitted to [facility] on 02/17/2017 for atrial fibrillation with rapid ventricular response. She was seen by Cardiology Service and Electrophysiology Service during this hospitalization. She was initially treated with Cardizem drip, subsequently with digoxin. She cardioverted to normal sinus rhythm. Cardiology and EP services offered her AV kellee ablation with pacer. The patient declined. She reportedly told them that if it happens again, she is open to the idea of pacemaker. She is being discharged home with calcium channel blockers and Multaq for now. She is advised to follow up with Cardiology Service In 1-2 weeks and with her primary care provider in 3-5 days. On 02/20, she had a white count of 3500, hemoglobin 11.8, and platelet count 77, 000. On 02/20, she had a sodium 139, potassium 5.0, and creatinine 1.14. Because of her relatively high potassium, her potassium dose has been decreased to 10 mEq on Tuesday, Tuesday, and Tuesday and none on the other days. DISCHARGE DESTINATION: Home. TOTAL AMOUNT OF TIME SPENT COORDINATING THIS DISCHARGE: 33 minutes. [facility] CENTERAlonzo
[2017-02-23] MEDS ORDERED: Potassium Chloride 10 MEQ TAB PO SCH (09:00)
== END 2017-02-22 16:39 | disposition home health service (06) | DRG 309 ==
LOC: ERS 17:08 → 2NO 19:00
PROVIDERS: ADMIT Internal Medicine; ATTEND Internal Medicine
DX: I48.91 Unspecified atrial fibrillation (principal); I13.0 Hypertensive heart and chronic kidney disease with heart failure and stage 1 through stage 4 chronic kidney disease, or unspecified chronic kidney disease; J96.11 Chronic respiratory failure with hypoxia; E46 Unspecified protein-calorie malnutrition; D69.6 Thrombocytopenia, unspecified; I50.32 Chronic diastolic (congestive) heart failure; E11.22 Type 2 diabetes mellitus with diabetic chronic kidney disease; N18.3 Chronic kidney disease, stage 3 (moderate); Z99.81 Dependence on supplemental oxygen; Z68.1 Body mass index [BMI] 19.9 or less, adult; I48.92 Unspecified atrial flutter; Z79.84 Long term (current) use of oral hypoglycemic drugs; J44.9 Chronic obstructive pulmonary disease, unspecified; E78.5 Hyperlipidemia, unspecified; K21.9 Gastro-esophageal reflux disease without esophagitis; I71.4 Abdominal aortic aneurysm, without rupture; I27.20 Pulmonary hypertension, unspecified; D64.9 Anemia, unspecified
CPT/HCPCS: 36415; 36416; 80048; 82040; 85025; 85730; 93005; 93798; 96365; 96366; A4216; J1160; J7050

== ENCOUNTER 2017-06-12 13:22 | Inpatient (IN) | payer MEDICARE, MEDICAID ==
[2017-06-12] MEDS ORDERED: ISOVUE-370 76%-LOCM 1 ML ONE (14:35)
[2017-06-12 14:50] LABS: #Lymphocytes 0.5 thou/uL (1.20-3.40); #Monocytes 0.1 thou/uL (0.11-0.59); #Neutrophils 5.2 thou/uL (1.40-6.50); %Eosinophils 0.2 % (0.0-10.0); %Lymphocytes 7.8 % (21.0-51.0); %Monocytes 2.2 % (0.0-10.0); %Neutrophils 89.9 % (42.0-75.0); Hemoglobin 12.5 g/dL (12.0-16.0); Mean Corpuscular Hemoglobin 30.5 pg (27.0-31.0); Mean Corpuscular Volume 98.4 fl (81.0-99.0); Mean Platelet Volume 9.6 fL (7.4-10.4); Platelet Count 77 thou/uL (130-400); RBC Distribution Width 14.8 % (11.5-14.5); Red Blood Cell (RBC) Count 4.09 mill/uL (4.20-5.40); White Blood Cell (WBC) Count 5.8 thou/uL (4.8-10.8)
[2017-06-12 15:00] LABS: MDiff Complete? YES; Ovalocytes SLIGHT = 2-5 cells (100X) (0-1/hpf); PLT Morphology Comment Appears Decreased; Polychromasia SLIGHT = 2-3 cells (100X) (0-2/hpf)
[2017-06-12 15:01] LABS: ALT (SGPT) 33 U/L (8-55); AST (SGOT) 36 U/L (5-34); Albumin 3.7 g/dL (3.4-4.8); Alkaline Phosphatase 73 U/L (40-150); Anion Gap 16 mmol/L (10-20); BUN (Urea Nitrogen) 25 mg/dL (9.8-20.1); Bilirubin, Total 0.8 mg/dL (0.2-1.2); Calc. Creatinine Clearance 0 mL/min (70-130); Carbon Dioxide 23 mmol/L (23-31); Chloride 108 mmol/L (98-107); Estimated GFR-MDRD 53; Globulin 2.5 g/dL (2.4-3.5); Glucose 98 mg/dL (83-110); Lipase 10 U/L (8-78); Potassium 4.6 mmol/L (3.5-5.1); Protein, Total 6.2 g/dL (6.0-8.3); Sodium 142 mmol/L (136-145)
[2017-06-12 15:06] LABS: CKMB 3.2 ng/mL (0-6.6)
[2017-06-12] MEDS ORDERED: Diltiazem 125 MG/25 ML ONE (16:22)
--- NOTE | 2017-06-12 16:40 | CT ---
CTA CHEST WITH CONTRAST: Date: 06/12/17 HISTORY: Chest pain. COMPARISON: Chest 1 view from same date. FINDINGS: CT angiogram chest performed after the intravenous administration of contrast. 3D rendering provided. Pulmonary trunk measures 34 mm, dilated. The distal pulmonary arteries are also dilated. No pulmonar y arterial filling defect. Heart size enlarged. Biatrial enlargement. Ascending aorta measures 41 mm. The aorta at the level of the diaphragmatic hiatus measures 43 mm. No significant pericardial effusion. Severe emphysematous changes of the lungs. There are bibasilar o pacities. There is mild pulmonary edema. IMPRESSION: 1. No pulmonary arterial filling defect. 2. Aneurysmal dilatation of the aorta at the level of the diaphragmatic hiatus measuring 43 mm. 3. Dilated pulmonary trunk and distal pulmonary arteries suggesting pulmonary arterial hypertension. 4. Mild to moderate pulmonary edema. 5. Severe emphysema. 6. Marked cardiomegaly with biatrial enlargement. 7. Multiple what appear to be sebaceous cysts over the right anterior chest wall. Correlation with u ltrasound may be beneficial. Soft tissue implant masses cannot be totally excluded, although felt les s likely. POS: SUNITHA
--- NOTE | 2017-06-12 16:46 | CT ---
CT ABDOMEN AND PELVIS WITH CONTRAST: Date: 06/12/17 HISTORY: Abdominal pain. Feeling sick. COMPARISON: Renal stone protocol from 2016. FINDINGS: Aorta is dilated to the level of the diaphragmatic hiatus. There is complete distal aortic occlusion, likely chronic. The aorta is occluded at the chest distal to the renal arteries. There is extensive atherosclerotic plaque throughout the aorta. The celiac artery and superior mesenteric arteries have severe plaque within them and multifocal areas of narrowing. The arterial system to the leg is fed pr imarily by the deep circumflex iliac arteries and the inferior epigastrics. There is free fluid in the pelvis. Monson catheter is in place. No dilated loops of large or small bow el. There are multifocal areas of likely infarction of the left kidney and less likely pyelonephritis . There is inflammatory stranding along the right paracolic gutter concerning for colitis. This could be infectious or inflammatory, although given the extensive atherosclerotic disease, ischemia is def initely within the differential. IMPRESSION: 1. Inflammatory stranding right paracolic gutter along the right colon. This could infectious or inf lammation, although given the amount of atherosclerotic disease, ischemia is definitively within the differential. Recommendation correlation with lactic acid levels. 2. Occlusion of the aorta just at the renal arteries with chronic occlusion of the iliac arteries wi th the lower extremities seen fed by the inferior epigastrics and deep circumflex iliac arteries. 3. Moderate volume free fluid in the pelvis, likely inflammation in nature. 4. Aortic aneurysm at the diaphragmatic hiatus measuring approximately 4.5 cm. 5. Multifocal areas of low attenuation in the left kidney suggesting infarctions. ER notified at 1555 hours. CODE CR. POS: SUNITHA
[2017-06-12] MEDS ORDERED: Diltiazem HCl 125 MG, Admixture Fee 1 EACH in Sodium Chloride 0.9% 100 ML IVPB SCH (17:00)
[2017-06-12] MEDS ORDERED: Furosemide 20 MG/2 ML VIAL ONE (18:00)
[2017-06-12 18:25] LABS: Bilirubin Negative (Negative); Blood, Urine Negative (Negative); Clarity CLEAR (Clear); Glucose, Urine (Dipstick) Negative (Negative); Leukocyte Negative (Negative); Nitrite Negative (Negative); Protein, Urine (Dipstick) Negative (Neg-Trace); Specific Gravity, Urine 1.011 (1.002-1.036); Urobilinogen 0.2 mg/dL (0.2-1.0); pH, Urine 5.5 (5.0-9.0)
[2017-06-12] MEDS ORDERED: Piperacillin/Tazobactam 3.375 GM in Sodium Chloride 0.9% 100 ML IVPB SCH (18:30)
[2017-06-12 18:31] LABS: Troponin I 0.092 ng/mL (< 0.028)
[2017-06-12 19:21] LABS: CRP (Inflammatory) 0.65 mg/dL (= or < 0.5)
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
[2017-06-12 21:11] LABS: Lactic Acid 2.2 mmol/L (0.5-2.2)
[2017-06-12 21:21] LABS: Troponin I 0.112 ng/mL (< 0.028)
[2017-06-12] MEDS ORDERED: Ondansetron HCl/PF 4 MG/2 ML Vial IVP PRN (21:25)
--- NOTE | 2017-06-13 00:28 | CON ---
DATE OF CONSULTATION: 06/12/2017 REASON FOR CONSULTATION: Abdominal fluid. HISTORY: Ms. Huertas is an 87-year-old woman with multiple medical problems, who presented to the [facility] because she could not breathe. She states that she is breathing well when I saw her in ER. She denies pain, nausea, vomiting, and states that her bowels are working really well. She was noted to be in worsening congestive heart failure in the emergency room and reportedly had some right upper qu adrant pain, so a CT angio and CT of the abdomen was performed. This showed some fluid in the abdome n, but no free air. It was also incidentally noted a 4.5 cm aortic aneurysm and complete occlusion o f the infrarenal aortic vessel. The patient denies any pain or nausea with eating. She denies any b lood in her stool. She states that she is comfortable at the time and breathing much better and does not have any complaints. PAST MEDICAL HISTORY: Atrial fibrillation and atrial flutter; COPD, on home O2; hypertension; conges tive heart failure; abdominal aortic aneurysm; chronic renal insufficiency; GERD; and anemia. She dixon s undergone an ablation for her supraventricular tachyarrhythmias and a repair of her shoulder injury . She has not had any abdominal surgeries. SOCIAL HISTORY: The patient does not smoke, drink, or use illicit drugs. FAMILY HISTORY: No pertinent family history. REVIEW OF SYSTEMS: Ten-system review of systems is negative except per HPI. The patient states that she has some pain in her foot and some swelling, but denies rest pain or claudication. She states t hat she ambulates in her home, although her daughter does the cooking and cleaning. She is able to u se the bathroom and bathe on her own. OUTPATIENT MEDICATIONS: Include aspirin, atorvastatin, diltiazem, dronedarone, Multaq, iron, Lasix, isosorbide mononitrate, lisinopril, and potassium. PHYSICAL EXAMINATION: GENERAL: Reveals a very frail elderly woman in no acute distress. She is alert and conversing appro priately. HEENT: Unremarkable. NECK: Supple without lymphadenopathy or thyroid nodules. I do not appreciate any bruits. HEART: She was tachycardic in the 140s when I saw her. I could not appreciate any murmurs, rubs, or gallops, but certainly these will be difficult to appreciate given her tachycardia. LUNGS: Fairly clear anteriorly. ABDOMEN: Soft. Her pulsatile aortic aneurysm is easily palpable. She has absolutely no tenderness to palpation and her stomach is soft and nondistended. Bowel sounds are normal. EXTREMITIES: Cool with delayed cap refill, but she does not have any ulcerations or gangrene. She d oes not have any palpable pedal, popliteal, and femoral pulses. She has some mild edema of the right ankle. NEUROLOGIC: No focal deficits. PSYCHIATRIC: Alert, oriented, and conversant. LABORATORY AND X-RAY FINDINGS: CT of the abdomen is reviewed and I agree with the written reports th at there are some free fluid in the pelvis. The radiologist noted some stranding in the right harmony lic gutter, which I did not really appreciate. Extensive vascular disease as described in HPI. White count is normal at 5.8, hematocrit 40.3, and platelets 77. BUN and creatinine are 25 and 1.18. Her electrolytes are unremarkable. Her B natriuretic peptide is up to 1600. Troponins were mildly elevated as well at 0.08 and her lactate is mildly elevated at 2.6. ASSESSMENT: Elderly frail woman with multiple medical comorbidities. She has extensive atherosclero tic vascular disease and is a terrible candidate for abdominal surgery given her oxygen-dependent [employer] WORK[employer] D and pre-existing comorbidities. She completely denies any abdominal pain or tenderness, and her ex am is completely benign. I feel that ischemia is certainly possible, but would recommend aggressive medical treatment of her comorbidities rather than surgery. We did discuss the possibility of surger y and the patient is against it at this time. I do not see any indication for it given her benign ab dominal exam and lack of pain and I think it would be very difficult to extubate her or get her back to her pre-hospital quality of life if she did undergo major surgery. According to the admitting doc tors discussion with her, she wants to be a FULL CODE, but when I asked her in detail what exactly obdulia cespedes wanted done if she were to get sicker, she stated that she wanted her daughter, Fabiana, to make her decisions if she gets to a point where she cannot make that, and she told me that she had already paco ked to her daughters and told them that she did not want anyone pushing on her chest or giving shocks . So, I am not sure that she really understood what was meant by code status. In addition, we talke d about being on the breathing machine and she said she would not want that either. When her family is available, I suggest a more in-depth discussion of her end-of-life decisions and it might be a goo d idea to get Palliative Care involved too.
[2017-06-13] MEDS: Atorvastatin Calcium 20 MG TAB PO SCH ×2 (00:32→21:12)
[2017-06-13 03:19] LABS: Lactic Acid 2.5 mmol/L (0.5-2.2)
[2017-06-13 03:26] LABS: Anion Gap 16 mmol/L (10-20); BUN (Urea Nitrogen) 27 mg/dL (9.8-20.1); Calc. Creatinine Clearance 0 mL/min (70-130); Calcium 9.1 mg/dL (7.8-10.44); Carbon Dioxide 27 mmol/L (23-31); Chloride 105 mmol/L (98-107); Estimated GFR-MDRD 50; Glucose 106 mg/dL (83-110); Potassium 4.7 mmol/L (3.5-5.1); Sodium 143 mmol/L (136-145)
[2017-06-13 03:38] LABS: Acanthocytes SLIGHT = 1-5 cells (100X) (None Seen); Band 2 % (5-11); Hemoglobin 11.9 g/dL (12.0-16.0); Lymphocytes 17 % (21-51); MDiff Complete? YES; Mean Corpuscular HGB CONC 32.6 g/dL (32.0-36.0); Mean Corpuscular Hemoglobin 31.7 pg (27.0-31.0); Mean Corpuscular Volume 97.1 fl (81.0-99.0); Mean Platelet Volume 9.3 fL (7.4-10.4); Monocytes 3 % (0-10); Neutrophil 78 % (42-75); PLT Morphology Comment Appears Decreased; Platelet Count 77 thou/uL (130-400); RBC Distribution Width 14.9 % (11.5-14.5); Red Blood Cell (RBC) Count 3.76 mill/uL (4.20-5.40); White Blood Cell (WBC) Count 2.8 thou/uL (4.8-10.8)
[2017-06-13] MEDS: Dronedarone HCl 400 MG TAB PO SCH ×3 (08:01→18:51)
[2017-06-13] MEDS ORDERED: Famotidine/PF 20 mg/2ml Vial SLOW IVP SCH (09:00)
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
--- NOTE | 2017-06-13 12:25 | PDOC.PN ---
- Subjective Encounter Start Date: 06/13/17 Encounter Start Time: 11:00 -: old records requested/rev Pt seen and examined, chart reviewed in its entirety, this is my first visit with this patient Pt continued to have tachycardia on 10 of cardizem. Changed to po by Dr Rodriguez , as pt admitted to him she had not taken her meds in some time. Case discussed with Dr Rodriguez and Dr Jeff face to face. Dr Jeff recommended hospice. Palliative care has been consulted to assist. No F/c, no N/V/dc/, no further abd pain, no CP or SOB 10 point ROS performed and neg for all systems except as above - Objective Resuscitation Status: Resuscitation Status FULL:Full Resuscitation MAR Reviewed: Yes Vital Signs & Weight: Vital Signs (12 hours) Temp Pulse Pulse Pulse Resp BP BP 06/13/17 11:22 97.8 F 139 H 20 06/13/17 10:59 139 H 124/83 06/13/17 08:44 105 H 135 H 124/81 06/13/17 08:00 97.8 F 127 H 18 BP BP Pulse Ox Pulse Ox Pulse Ox 06/13/17 11:22 129/86 96 06/13/17 10:59 06/13/17 08:44 125/85 98 100 06/13/17 08:00 116/74 99 Weight Weight 91 lb I&O: 06/12/17 06/13/17 06/14/17 06:59 06:59 06:59 Intake Total 115 Output Total 700 Balance -585 Result Diagrams: 06/13/17 02:49 06/13/17 02:49 Radiology Reviewed by me: Yes EKG Reviewed by me: Yes Phys Exam - Physical Examination Constitutional: NAD cachectic, chronically ill-appearing HEENT: PERRLA, moist MMs, sclera anicteric, oral pharynx no lesions Neck: no nodes, no JVD, supple, full ROM Respiratory: no wheezing, no rales, no rhonchi, clear to auscultation bilateral tachy, sounds regular, no murmurs Gastrointestinal: soft, non-tender, no distention, positive bowel sounds Musculoskeletal: no edema, pulses present Neurological: non-focal, normal sensation, moves all 4 limbs Lymphatic: no nodes Psychiatric: normal affect, A&O x 3 Skin: no rash, normal turgor, cap refill <2 seconds Dx/Plan (1) Acute and chronic respiratory failure with hypoxia Code(s): J96.21 - ACUTE AND CHRONIC RESPIRATORY FAILURE WITH HYPOXIA Status: Acute Comment: Improved with decreased pulmonary edema (2) Acute on chronic diastolic heart failure Code(s): I50.33 - ACUTE ON CHRONIC DIASTOLIC (CONGESTIVE) HEART FAILURE Status : Acute Comment: Continue Lasix 40mg po daily (3) Atrial fibrillation Code(s): I48.91 - UNSPECIFIED ATRIAL FIBRILLATION Status: Acute Qualifiers: Atrial fibrillation type: paroxysmal Qualified Code(s): I48.0 - Paroxysmal atrial fibrillation Comment: cardiology [id number],restart home meds. (4) Atrial flutter Code(s): I48.92 - UNSPECIFIED ATRIAL FLUTTER Status: Acute Qualifiers: Atrial flutter type: unspecified Qualified Code(s): I48.92 - Unspecified atrial flutter (5) Chronic diastolic heart failure Code(s): I50.32 - CHRONIC DIASTOLIC (CONGESTIVE) HEART FAILURE Status: Chronic (6) Elevated troponin I level Code(s): R79.89 - OTHER SPECIFIED ABNORMAL FINDINGS OF BLOOD CHEMISTRY Status : Chronic Comment: Demand ischemia from RVr w A-fib. - Plan cont current plan of care * . follow up on cardiology, pulm, and palliative care
[2017-06-13] MEDS ORDERED: ALPRAZolam 0.25 MG TAB PO PRN (15:35)
--- NOTE | 2017-06-13 18:08 | CON ---
DATE OF CONSULTATION: 06/13/2017 REASON FOR CONSULTATION: Atrial fibrillation with rapid ventricular response and atrial flutter. Ms. Huertas is a unfortunate 87-year-old woman who I have seen and evaluated in the past. She has had [facility] hospitalizations for atrial flutter. Compliance has been an issue. She has been out of her medications recently. She returns due to tachycardia and shortness of breath. PAST MEDICAL HISTORY: COPD, hypertension, hyperlipidemia, diabetes mellitus, chronic kidney disease, acid reflux, anemia. HOME MEDICATIONS: None. ALLERGIES: None. REVIEW OF SYSTEMS: Ten-point review of systems is reviewed and is as above negative. PHYSICAL EXAMINATION: GENERAL: Patient is a pleasant female who is in no acute distress. The patient appears her stated age. VITAL SIGNS: Blood pressure 112/70, pulse 102, temperature 98.2. NEUROLOGIC: The patient is alert and oriented times 3 with no focal neurologic deficits. HEENT: Sclerae without icterus. Mouth has moist mucous membranes with normal pallor. NECK: No JVD. Carotid upstroke brisk. No bruits bilaterally. LUNGS: Clear to auscultation with unlabored respirations. BACK: No scoliosis or kyphosis. CARDIAC: Irregularly irregular. ABDOMEN: Soft, nontender, nondistended. No peritoneal signs present. No hepatosplenomegaly. No abnormal striae. EXTREMITIES: 2+ femoral and 2+ dorsalis pedis pulses. No cyanosis, clubbing, or edema. SKIN: No gross abnormalities. PERTINENT LABORATORY DATA: Hemoglobin 11.9, creatinine 1.23. IMPRESSION: 1. Atrial fibrillation/flutter. 2. Noncompliance. RECOMMENDATIONS: Unfortunately, Ms. Huertas continues to have intermittent admissions with the same pro blem. I have discussed hospice with Ms. Huertas in the past. It appears our options are fairly limited . May also consider pacemaker with AV kellee ablation to help control her rate. We will discuss with Dr. Lamb to at least consider. The patient has considered this in the past. Continue IV Cardizem. Supplement with p.o. Cardizem.
--- NOTE | 2017-06-14 00:30 | PRG ---
DATE OF SERVICE: 06/13/2017 SUBJECTIVE: Ms. Huertas is upset today. She is fixated on the idea that her granddaughter is in one of the other rooms in the [facility] and that she wants to come to see her, but cannot get to her. I opened the door and demonstrated Ms. Huertas that her granddaughter is not there, but she remains convinced asim t her granddaughter is trying to get her. She denies any pain or shortness of breath. She denies an y nausea. Her abdomen is soft, nontender, nondistended, likely has been fluctuating a little bit on the high normal or normal range, but she has tolerated her clear liquids without any problems. ASSESSMENT: Congestive heart failure with mild increase in lactate and a small amount of free fluid in the abdomen; however, the patient is completely pain free and nontender to palpation. So, further evaluation is not recommended, given her frailty and multiple medical problems. I will sign off for now. If she develops abdominal pain or tenderness, please do not hesitate to contact.
[2017-06-14 04:48] LABS: #Lymphocytes 0.5 thou/uL (1.20-3.40); #Monocytes 0.4 thou/uL (0.11-0.59); #Neutrophils 5.5 thou/uL (1.40-6.50); %Eosinophils 0.1 % (0.0-10.0); %Lymphocytes 8.4 % (21.0-51.0); %Monocytes 6.2 % (0.0-10.0); %Neutrophils 85.3 % (42.0-75.0); Hemoglobin 11.6 g/dL (12.0-16.0); Mean Corpuscular HGB CONC 31.5 g/dL (32.0-36.0); Mean Corpuscular Hemoglobin 30.7 pg (27.0-31.0); Mean Corpuscular Volume 97.5 fl (81.0-99.0); Mean Platelet Volume 9.7 fL (7.4-10.4); Platelet Count 90 thou/uL (130-400); RBC Distribution Width 14.8 % (11.5-14.5); Red Blood Cell (RBC) Count 3.77 mill/uL (4.20-5.40); White Blood Cell (WBC) Count 6.4 thou/uL (4.8-10.8)
[2017-06-14 05:01] LABS: Anion Gap 15 mmol/L (10-20); BUN (Urea Nitrogen) 42 mg/dL (9.8-20.1); Calc. Creatinine Clearance 17 mL/min (70-130); Calcium 9.3 mg/dL (7.8-10.44); Carbon Dioxide 27 mmol/L (23-31); Chloride 103 mmol/L (98-107); Estimated GFR-MDRD 38; Glucose 114 mg/dL (83-110); Potassium 4.4 mmol/L (3.5-5.1); Sodium 141 mmol/L (136-145)
[2017-06-14] MEDS: Dronedarone HCl 400 MG TAB PO SCH ×2 (08:04→17:35)
[2017-06-14] MEDS ORDERED: Lisinopril 2.5 MG TAB PO SCH (09:00)
--- NOTE | 2017-06-14 10:12 | PRG ---
DATE OF SERVICE: 06/14/2017 SUBJECTIVE: Ms. Huertas today appears somewhat confused. No family is available. She has no current c omplaints. She did convert back to sinus rhythm yesterday. PHYSICAL EXAMINATION: VITAL SIGNS: Currently, blood pressure 129/77, pulse 87, and temperature 98.2. LUNGS: Clear to auscultation. CARDIAC: Regular rate and rhythm. ABDOMEN: Soft, nontender, nondistended. EXTREMITIES: No edema. IMPRESSION: Recurrent atrial flutter, now sinus rhythm. RECOMMENDATIONS: I had multiple discussions with Ms. Huertas in the past about hospice, palliative care in addition to a pacemaker implantation. During her last hospitalization, she did state that if she had recurrent episodes of atrial fibrillation/flutter, she had been amenable to AV kellee ablation an d pacemaker. I did discuss this with her once again. She at this point is agreeable. I have ask Dr. Lamb to visit with Ms. Huertas. This may help decrease her hospitalizations. Continue current treatme nt with long-acting diltiazem.
--- NOTE | 2017-06-14 11:10 | PRG ---
DATE OF SERVICE: 06/14/2017 SERVICE: Pulmonary Medicine. INTERVAL HISTORY: The patient is doing fine from a cardiovascular and respiratory standpoint. She i s breathing comfortably without any acute issues. There were no overnight events. Her rate is under better control today after restarting some of her home medications. She is going to be worked up by Dr. Lamb for her tachyarrhythmia, but truth be told, it is typically under fairly decent control wit h good p.o. medications. Unfortunately, she cannot afford them in the outpatient setting and frequen tly abundance therapy. This would result in her frequent exacerbations. OBJECTIVE: VITAL SIGNS: Afebrile, pulse 91, blood pressure 129/77, respirations 22, saturation 94% on 1 liter n fernanda cannula. GENERAL: The patient is awake, alert, no apparent distress. LUNGS: Decent air entry. There are no crackles, wheezing or rhonchi present. HEART: Normal rate and regular. ABDOMEN: Soft, nontender, nondistended. Bowel sounds are positive. MUSCULOSKELETAL: No cyanosis or clubbing. There is no pitting in the bilateral lower extremities. NEUROLOGIC: Grossly nonfocal. LABORATORY DATA: WBC 6.4, hemoglobin 11.6, platelets 90,000. Creatinine 1.56 and up trending. Basi c metabolic profile: Magnesium is unremarkable. Urinalysis is negative. Blood cultures x2 and urin e culture are unremarkable. ASSESSMENT: 1. Chronic obstructive pulmonary disease without current exacerbation. 2. Chronic hypoxic respiratory failure, currently at baseline. 3. Atrial fibrillation with rapid ventricular response secondary to medication noncompliance. 4. Peripheral vascular disease, severe. 5. Colitis of the right colon, possibly ischemic. DISCUSSION AND PLAN: At this point, the patient can be transitioned out of the ICU to the telemetry unit. We will continue to watch her urine output. We will avoid any nephrotoxins moving forward. H opefully, her kidney injury will start to resolve in the next 24-48 hours. I will continue to follow up for 1 additional day.
[2017-06-14] MEDS ORDERED: Iopamidol 370 76% 50 ML VIAL FS ONE (11:56)
--- NOTE | 2017-06-14 14:05 | PDOC.PN ---
- Subjective Encounter Start Date: 06/14/17 Encounter Start Time: 10:00 -: old records requested/rev Pt sleepy, but arousable. no F/c, no N/V/D/c. When awakened, oriented to person , partially to place. not to noemi. Case discussed with Dr Jeff and Dr Rodriguez face to face. EP consulted for consideration of CASSIE, ablation and pacer, but likely not a good candidate. HR better controlled. BP stable. 10 point ROS attempted, pt denied all, but unsure of reliability - Objective Resuscitation Status: Resuscitation Status FULL:Full Resuscitation MAR Reviewed: Yes Vital Signs & Weight: Vital Signs (12 hours) Temp Pulse Resp BP Pulse Ox 06/14/17 12:00 98.0 F 88 18 127/68 93 L 06/14/17 09:06 91 22 H 94 L 06/14/17 08:04 87 06/14/17 07:43 98.2 F 87 20 96 06/14/17 07:33 98.2 F 87 20 129/77 96 06/14/17 04:10 97.6 F 96 20 132/80 93 L Weight Weight 95 lb 6 oz I&O: 06/13/17 06/14/17 06/15/17 06:59 06:59 06:59 Intake Total 115 500 540 Output Total 700 300 200 Balance -585 200 340 Result Diagrams: 06/14/17 04:03 06/14/17 04:03 Radiology Reviewed by me: Yes EKG Reviewed by me: Yes Phys Exam - Physical Examination Constitutional: NAD cachectic looking, thin and frail HEENT: PERRLA, moist MMs, sclera anicteric, oral pharynx no lesions Neck: no nodes, no JVD, supple, full ROM Respiratory: no wheezing, no rhonchi coarse bibasilar rales Cardiovascular: RRR, no significant murmur, no rub, irregular HSM at apex, 3/6 Gastrointestinal: soft, non-tender, no distention, positive bowel sounds Musculoskeletal: no edema, pulses present Neurological: non-focal, normal sensation, moves all 4 limbs Lymphatic: no nodes Psychiatric: normal affect, A&O x 3 Skin: no rash, normal turgor, cap refill <2 seconds Dx/Plan (1) Acute and chronic respiratory failure with hypoxia Code(s): J96.21 - ACUTE AND CHRONIC RESPIRATORY FAILURE WITH HYPOXIA Status: Acute Comment: Improved with decreased pulmonary edema (2) Acute on chronic diastolic heart failure Code(s): I50.33 - ACUTE ON CHRONIC DIASTOLIC (CONGESTIVE) HEART FAILURE Status : Acute Comment: Continue Lasix 40mg po daily (3) Atrial fibrillation Code(s): I48.91 - UNSPECIFIED ATRIAL FIBRILLATION Status: Acute Qualifiers: Atrial fibrillation type: paroxysmal Qualified Code(s): I48.0 - Paroxysmal atrial fibrillation Comment: cardiology [id number],restart home meds. (4) Atrial flutter Code(s): I48.92 - UNSPECIFIED ATRIAL FLUTTER Status: Acute Qualifiers: Atrial flutter type: unspecified Qualified Code(s): I48.92 - Unspecified atrial flutter Comment: EP thinks ablation may help quality of life. Will follow up on their recommendations (5) Chronic diastolic heart failure Code(s): I50.32 - CHRONIC DIASTOLIC (CONGESTIVE) HEART FAILURE Status: Chronic (6) Elevated troponin I level Code(s): R79.89 - OTHER SPECIFIED ABNORMAL FINDINGS OF BLOOD CHEMISTRY Status : Chronic Comment: Demand ischemia from RVr w A-fib. - Plan cont current plan of care, respiratory therapy, DVT proph w/lovenox * .
[2017-06-14] MEDS ORDERED: Propofol 1,000 MG/100 ML VIAL IV ONE (14:35)
[2017-06-14] MEDS ORDERED: CEFAZOLIN/Water 2 GM/20 ML SYRINGE ONE (14:40)
[2017-06-14] MEDS ORDERED: Propofol 200 MG/20 ML VIAL ONE (14:44)
[2017-06-14] MEDS ORDERED: PHENYLEPHRINE-NS 100 MCG/ML 10 ML SYRINGE ONE (14:44)
[2017-06-14] MEDS ORDERED: CEFAZOLIN/Water 2 GM/20 ML SYRINGE SLOW IVP SCH (15:00)
[2017-06-14] MEDS ORDERED: Bisacodyl 5 MG TAB PO PRN (16:47)
[2017-06-14] MEDS ORDERED: Ondansetron HCl/PF 4 MG/2 ML Vial IVP PRN (16:47)
[2017-06-14] MEDS ORDERED: Bisacodyl 10 MG SUPP PR PRN (16:47)
[2017-06-14] MEDS ORDERED: Mag-Al 1200 mg/1200 mg/30 ML UDCUP PO PRN (16:47)
[2017-06-14] MEDS ORDERED: traMADol HCl 50 MG TAB PO PRN (16:47)
[2017-06-14] MEDS ORDERED: Temazepam 15 MG CAP PO PRN (16:47)
[2017-06-14] MEDS ORDERED: Acetaminophen 325 MG TAB PO PRN (16:47)
[2017-06-14] MEDS ORDERED: diphenhydrAMINE 25 MG CAP PO PRN (16:47)
[2017-06-14] MEDS ORDERED: Nitroglycerin 0.4 MG TAB (25 Tab Bottle) SL PRN (16:47)
[2017-06-14] MEDS ORDERED: Silver Sulfadiazine 1% Cream 50 GM JAR TOP PRN (16:47)
[2017-06-14] MEDS: Atorvastatin Calcium 20 MG TAB PO SCH (20:50)
[2017-06-14] MEDS: Cephalexin 250 MG CAP PO SCH (20:50)
--- NOTE | 2017-06-15 02:18 | CON ---
DATE OF CONSULTATION: 06/14/2017 ELECTROPHYSIOLOGY CONSULTATION REFERRING PHYSICIAN: Boo Jeff M.D. This is a consultation dictated for Dr. Baltazar Lamb. REASON FOR CONSULTATION: Atrial fibrillation with rapid ventricular response and atrial flutter. HISTORY OF PRESENT ILLNESS: Ms. Huertas is an 87-year-old patient who is frequently hospitalized for atrial fibrillation, atrial flutter, and heart failure symptoms. She is somewhat frail and very limited given her age and comorbidities.She has poor compliance with her medications and with such, is frequently in and out of the hospital with heart racing, fluid retention, and shortness of breath. This is what brings her to the hospital with this admission as well. In the past, hospice has been discussed with her, which she is not ready to pursue a hospice at this point and that being said, she also does not wish to be extremely aggressive with her care but would like an improved quality of life. PAST MEDICAL HISTORY: 1. Atrial arrhythmias. A. Typical atrial flutter, status post CTI ablation. B. Atypical atrial flutter with RVR. C. Atrial fibrillation with RVR supressed with Multaq. 2. Chronic kidney disease. 3. Hypertension. 4. Hyperlipidemia. 5. Diabetes. 6. Chronic obstructive pulmonary disease. 7. Anemia. 8. Acid reflux. 9. Pulmonary hypertension. 10. Chronic diastolic heart failure. 11. Suprarenal abdominal aortic aneurysm. ALLERGIES: None. HOME MEDICATIONS: Imdur 30 mg daily, Lipitor 20 mg daily, potassium chloride 10 mEq daily, ferrous gluconate 324 mg daily, aspirin, Ecotrin 81 mg p.o. daily , and furosemide 40 mg daily. SOCIAL HISTORY: Denies smoking, tobacco use, alcohol or illicit drug use. FAMILY HISTORY: Significant for lung cancer with her mother. REVIEW OF SYSTEMS: CONSTITUTIONAL: The patient denies fevers, chills, malaise, night sweats, recent weight fluctuations, never unintentional. Positive for activity intolerance, chronic fatigue. HEENT: The patient denies double vision, vision changes, difficulty swallowing. PULMONARY: Positive for shortness of breath, dyspnea on exertion: Negative for wheezing, recent respiratory illness, cough, or bloody sputum. CARDIOVASCULAR: Negative for chest pain, palpitations, syncope, or near syncope. Positive for rapid heart rate. GASTROINTESTINAL: Negative for nausea, vomiting, diarrhea, or blood in the stool. MUSCULOSKELETAL: Positive for weakness, positive for joint pain, and negative for gait limitation. PHYSICAL EXAMINATION: VITAL SIGNS: Temperature 98.2 degrees Fahrenheit, pulse 87, respirations 20, oxygen saturation 96% on nasal cannula 2 liters, Blood pressure is 127/68. GENERAL: Ms. Huertas is a frail appearing -[place] woman in no acute distress. Of note, she has had some documented confusion but is currently alert and oriented. Her daughter is at the bedside. She appropriately answers questions and her affect was appropriate. She is able to verbalize understanding with the discussions today. She is seated comfortably on the edge of the bed. HEENT: Sclerae are anicteric. Oral mucosa is moist. Dentition is poor. NECK: Supple without jugular venous distention. PULMONARY: Lungs are clear to auscultation bilaterally. Respirations are unlabored; however, respirations are limited and there are COPD associated changes with decreased air movement. CARDIOVASCULAR: Heart rate is irregularly irregular. EXTREMITIES: Warm and dry to touch without clubbing, cyanosis, or edema. GASTROINTESTINAL: Abdominal exam is benign. Abdomen is soft and nontender without palpable mass. Hepatojugular reflex is negative. LABORATORY DATA: Hematology on 06/14/2017, WBC 6.4, hemoglobin 11.6, hematocrit 36.8, platelet count 90. Chemistry from 06/14/2017, sodium 141, potassium 4.4, chloride 103, carbon dioxide 27, BUN is 42, creatinine is 1.56, calcium is 9.3, magnesium is 2.0. BNP on 06/13/2017 was 1446.7. IMPRESSION: 1. Atrial arrhythmias with rapid ventricular response. 2. Poor medication compliance. RECOMMENDATIONS: Unfortunately, Ms. Huertas continues to have uncontrolled atrial flutter with RVR requiring hospitalization for associated dyspnea. She has subsequently elevated BNP/ CHF like symptoms. In the past, AV node ablation with pacemaker implantation has been considered and refused by the patient and her family. Today, we again discussed this with the patient and her daughter present at the bedside. The patient is lucid and appropriately interacting. She appropriately answers orientation questions and expresses that she wishes to pursue pacemaker implantation and AV node ablation in the future to improve her rate control, prevent hospitalizations, and ideally improve her quality of life. The risks of pacemaker implantation were discussed with the patient and her family. The risks include infection, damage to the surrounding skin, nerves , blood vessels and organs, pneumothorax, pericardial effusion, hemothorax, need for chest tube placement or surgical intervention and repair, and . The patient is able to verbalize understanding of the risks and wishes to proceed with the procedure. This will be done this afternoon. AV kellee ablation will be scheduled at a later date once recovered from her dual-chamber pacemaker implantation. Thank you for allowing us to participate in the care of this patient. We will continue to follow while she is hospitalized. Dictated by Mana Ortiz NP I have been performing her evaluation, exam an formulation of this plan. Agree with the above. SHERI
[2017-06-15 05:20] LABS: Anion Gap 13 mmol/L (10-20); BUN (Urea Nitrogen) 44 mg/dL (9.8-20.1); Calc. Creatinine Clearance 17 mL/min (70-130); Calcium 8.5 mg/dL (7.8-10.44); Carbon Dioxide 26 mmol/L (23-31); Chloride 105 mmol/L (98-107); Estimated GFR-MDRD 37; Glucose 79 mg/dL (83-110); Potassium 4.7 mmol/L (3.5-5.1); Sodium 139 mmol/L (136-145)
[2017-06-15] MEDS: Cephalexin 250 MG CAP PO SCH ×2 (08:07→15:09)
[2017-06-15] MEDS: Dronedarone HCl 400 MG TAB PO SCH (08:07)
--- NOTE | 2017-06-15 09:41 | PRG ---
DATE OF SERVICE: 06/15/2017 ELECTROPHYSIOLOGY FOLLOW UP AND PACEMAKER INTERROGATION REPORT REFERRING PHYSICIAN: Dr. Jeff SUBJECTIVE: Ms. Huertas seems to be doing well one day after her pacemaker implant. No palpitations, n o chest pain, no significant dyspnea noted. OBJECTIVE: VITAL SIGNS: Blood pressure is 170/79, heart rate 89, respirations 18, temperature 96.8 degrees Fahr enheit. GENERAL: She is alert and oriented woman in no apparent distress. NECK: Supple. Jugular veins not distended. EXTREMITIES: Left subclavian pacemaker site is well healed. ABDOMEN: Benign. Bowel sounds positive. EXTREMITIES: Lower extremities without edema, clubbing or cyanosis. LABORATORY DATA: Telemetry strips today reveals sinus rhythm with intermittent atrial pacing with AV conduction. Review of her pacemaker interrogation reveals a awe.smtronic Advisa DR dual chamber pacemaker voltage 3. 0, lead parameters are adequate, although the RV leads are somewhat slower 2.5 millivolts implant. C apture thresholds excellent 0.375 with 0.4 milliseconds in 380 ohms. Atrial lead is sensing 4 milliv olts and is 399, is 0.375 volts at 0.4 milliseconds. The patient remained in sinus rhyth m, battery volt is at beginning of life. The chest x-ray is still pending. ASSESSMENT AND PLAN: Ms. Huertas is a pleasant 87-year-old woman with history of atrial arrhythmias. S he had atypical atrial flutter which was pace terminable. She has recurrent admission with tachyarrh ythmia's, difficult ventricular rates. She underwent a pacemaker implantation which is a antit achycardia device in preparation atrial termination of her future arrhythmias. This feature will be turned on after lead maturation. On the other hand, if this is insufficient, plans for AV kellee ablation also could be tentatively mad e. 2. Check chest x-ray and resume the standard postoperative care. Continue antibiotics with Keflex. A routine 2-week followup in our office for wound check.
--- NOTE | 2017-06-15 09:51 | RAD ---
PORTABLE CHEST 1 VIEW: DATE: 06/15/17 at 9:02 a.m. HISTORY: Pacemaker placement. FINDINGS: There has been interval placement of a left-sided pacemaker device with bipolar leads in the right at rium and the right ventricle since exam of 06/12/17. No pneumothoraces are seen. The remainder of doctors hospital exam is otherwise stable. POS: [facility]
--- NOTE | 2017-06-15 10:46 | PRG ---
DATE OF SERVICE: 06/15/2017 SERVICE: Pulmonary Medicine. INTERVAL HISTORY: The patient is doing really quite well from a respiratory standpoint. She remains on 2 liters nasal cannula and her saturations are fine. She is extraordinarily confused this greysonn g. That being said, she is perfectly alert. Otherwise, looks comfortable. There were no overnight events. PHYSICAL EXAMINATION: VITAL SIGNS: Afebrile, pulse is 80, blood pressure 108/52, respirations 18, saturation 98% on 3 lite rs nasal cannula. GENERAL: Patient is awake, alert, in no apparent distress. LUNGS: Decent air entry. There is a slightly prolonged expiratory phase. No crackles are identifie d. HEART: Normal rate, regular. ABDOMEN: Soft, nontender, nondistended. Bowel sounds are positive. MUSCULOSKELETAL: No cyanosis or clubbing. No pitting in the bilateral lower extremities. NEUROLOGIC: Grossly nonfocal. LABORATORY DATA: WBC 6.4, hemoglobin 11.6, platelets 90,000. Creatinine 1.60. Basic metabolic prof ile is otherwise unremarkable/improving. Magnesium 2.0. Urinalysis is unremarkable. Blood cultures x2 and urine culture negative. IMAGING: Chest x-ray demonstrates interval placement of left-sided pacemaker device with bipolar jeannie ds in the right atrium and right ventricle. Chronic lung changes and hyperexpansion of bilateral tony g nguyen is otherwise identified. ASSESSMENT: 1. Chronic obstructive pulmonary disease without current exacerbation. 2. Chronic hypoxic respiratory failure, at baseline. 3. Atrial fibrillation with rapid ventricular response, with current good rate control. 4. Medication noncompliance. 5. Peripheral vascular disease, severe, not an operative candidate. 6. Colitis of the right colon, possibly ischemic. DISCUSSION AND PLAN: Once again, the patient can be transitioned out of the IMCU to the telemetry it. Once our room opens up, we will make that transition. From a purely respiratory perspective, obdulia cespedes remains stable for discharge from the hospital, but as long as we have a good plan in place with Ca rdiology. I will continue to follow as long as she is in this location.
[2017-06-15 11:16] VITALS: TEMP 97
[2017-06-15 12:19] VITALS: BP 103/52
--- NOTE | 2017-06-15 18:11 | PRG ---
DATE OF SERVICE: 06/15/2017 Ms. Huertas's status is unchanged. She recently underwent pacemaker placement. She has done well. The pacemaker has been reprogrammed. OBJECTIVE: VITAL SIGNS: Current vital sings, blood pressure 103/52, pulse 89, temperature 97. LUNGS: Clear to auscultation. HEART: Regular rate and rhythm. ABDOMEN: Soft, nontender, nondistended. EXTREMITIES: No edema. IMPRESSION: 1. Atrial flutter. RECOMMENDATIONS: 1. Continue Cardizem. 2. Plan on pacemaker followup with Dr. Lamb. 3. Conservative therapy. 4. Avoid anticoagulation therapy. There are issues with noncompliance and increased risk of bleedin g.
--- NOTE | 2017-06-18 12:21 | EKG ---
Test Reason : AFLUTTER TXR Blood Pressure : / mmHG Vent. Rate : 144 BPM Atrial Rate : 288 BPM P-R Int : 000 ms QRS Dur : 080 ms QT Int : 290 ms P-R-T Axes : -29 001 238 degrees QTc Int : 449 ms Atrial flutter with 2:1 A-V conduction Left ventricular hypertrophy with repolarization abnormality Abnormal ECG Confirmed by TAMAR Finney, FELICITA ([id number]), acquisitions editor CRUZ OLIVERA ([id number]) on 06/18/2017 12:21:26 PM Referred By: TAMAR Confirmed By:FELICITA BOYLE M.D.
--- NOTE | 2017-06-18 17:24 | EKG ---
Test Reason : Blood Pressure : / mmHG Vent. Rate : 096 BPM Atrial Rate : 288 BPM P-R Int : 000 ms QRS Dur : 094 ms QT Int : 336 ms P-R-T Axes : 080 067 142 degrees QTc Int : 424 ms Atrial flutter with variable A-V block Left ventricular hypertrophy with repolarization abnormality Abnormal ECG Confirmed by DEE MCGREGOR, YONI Mcfarland ([id number]), editor index CRUZ OLIVERA ([id number]) on 06/18/2017 5:23:41 PM Referred By: CANINE Confirmed By:YONI PRICE MD
== END 2017-06-15 16:35 | disposition home health service (06) | DRG 242 ==
LOC: ERS 13:22 → ERHOLD 17:04 → IMCU/EMU 22:58
PROVIDERS: ADMIT Family Medicine; ATTEND Family Medicine
PROC: 0JH606Z Insertion of Pacemaker, Dual Chamber into Chest Subcutaneous Tissue and Fascia, Open Approach (ICD-10-PCS; principal; 2017-06-14)
PROC: 02H63JZ Insertion of Pacemaker Lead into Right Atrium, Percutaneous Approach (ICD-10-PCS; 2017-06-14)
PROC: 02HK3JZ Insertion of Pacemaker Lead into Right Ventricle, Percutaneous Approach (ICD-10-PCS; 2017-06-14)
DX: I48.92 Unspecified atrial flutter (principal); I50.33 Acute on chronic diastolic (congestive) heart failure; J96.21 Acute and chronic respiratory failure with hypoxia; N17.9 Acute kidney failure, unspecified; K55.9 Vascular disorder of intestine, unspecified; I24.8 Other forms of acute ischemic heart disease; I27.20 Pulmonary hypertension, unspecified; R18.8 Other ascites; N18.3 Chronic kidney disease, stage 3 (moderate); I13.0 Hypertensive heart and chronic kidney disease with heart failure and stage 1 through stage 4 chronic kidney disease, or unspecified chronic kidney disease; I69.351 Hemiplegia and hemiparesis following cerebral infarction affecting right dominant side; I48.91 Unspecified atrial fibrillation; Z99.81 Dependence on supplemental oxygen; I71.4 Abdominal aortic aneurysm, without rupture; Z66 Do not resuscitate; I25.10 Atherosclerotic heart disease of native coronary artery without angina pectoris; E78.5 Hyperlipidemia, unspecified; Z87.891 Personal history of nicotine dependence; I44.30 Unspecified atrioventricular block; D64.9 Anemia, unspecified; J44.9 Chronic obstructive pulmonary disease, unspecified; I73.9 Peripheral vascular disease, unspecified; Z91.19 Patient's noncompliance with other medical treatment and regimen
CPT/HCPCS: 33208; 36005; 36415; 51702; 71045; 71275; 74177; 75820; 80048; 81003; 83605; 83615; 83690; 83735; 83880; 85025; 86140; 87040; 87086; 93005; 93306; 94640; 96365; 96366; 96376; C1785; C1898; G8978-GP-CL; G8979-GP-CJ; G8987-GO-CL; G8988-GO-CJ; J1940; J2543; J2704; J3490; J7050; J7620

== ENCOUNTER 2017-06-20 10:04 | Inpatient (IN) | payer MEDICARE, MEDICAID ==
[2017-06-20 11:25] LABS: #Eosinphils 0.1 thou/uL (0.0-0.7); #Lymphocytes 1.4 thou/uL (1.20-3.40); #Monocytes 0.5 thou/uL (0.11-0.59); #Neutrophils 3.3 thou/uL (1.40-6.50); %Basophils 0.3 % (0.0-1.0); %Eosinophils 1.2 % (0.0-10.0); %Monocytes 9.6 % (0.0-10.0); %Neutrophils 62.9 % (42.0-75.0); Mean Corpuscular HGB CONC 30.7 g/dL (32.0-36.0); Mean Corpuscular Hemoglobin 30.9 pg (27.0-31.0); Mean Platelet Volume 8.9 fL (7.4-10.4); Platelet Count 114 thou/uL (130-400); RBC Distribution Width 14.6 % (11.5-14.5); Red Blood Cell (RBC) Count 2.92 mill/uL (4.20-5.40); White Blood Cell (WBC) Count 5.3 thou/uL (4.8-10.8)
[2017-06-20 11:27] LABS: INR-International Normal Ratio 1.3; PTT 34.7 SEC (22.9-36.1); Prothrombin Time 16.3 SEC (12.0-14.7)
--- NOTE | 2017-06-20 11:39 | RAD ---
CHEST ONE VIEW: HISTORY: Pain. COMPARISON: Chest one view from 06/15/2017. FINDINGS: Heart size is markedly enlarged. Mild pulmonary vascular congestion. No pneumothorax. Mildly increased interstitial markings in the lung bases. Multiple calcified granulomas. Dense calcifications of the aorta. Mild dextroscoliosis. IMPRESSION: 1. Marked cardiomegaly. 2. Mild pulmonary edema. 3. Small effusions. 4. Overall, examination is similar to the 06/15/2017 exam. POS: OFF
[2017-06-20 11:56] LABS: ALT (SGPT) 11 U/L (8-55); AST (SGOT) 25 U/L (5-34); Albumin 3.5 g/dL (3.4-4.8); Alkaline Phosphatase 50 U/L (40-150); Anion Gap 17 mmol/L (10-20); BUN (Urea Nitrogen) 27 mg/dL (9.8-20.1); Bilirubin, Total 1.4 mg/dL (0.2-1.2); CK (CPK) 118 U/L (29-168); Calc. Creatinine Clearance 0 mL/min (70-130); Calcium 8.8 mg/dL (7.8-10.44); Carbon Dioxide 24 mmol/L (23-31); Chloride 102 mmol/L (98-107); Estimated GFR-MDRD 48; Globulin 2.3 g/dL (2.4-3.5); Lipase 14 U/L (8-78); Potassium 5.2 mmol/L (3.5-5.1); Protein, Total 5.8 g/dL (6.0-8.3); Sodium 138 mmol/L (136-145)
[2017-06-20 12:03] LABS: CKMB 10.5 ng/mL (0-6.6); Glucose 58 mg/dL (83-110)
[2017-06-20 12:04] LABS: Acanthocytes MODERATE= 6-15 cells (100X) (None Seen); MDiff Complete? YES; PLT Morphology Comment Appears Decreased; Polychromasia MODERATE = 3-4 cells (100X) (0-2/hpf)
[2017-06-20] MEDS ORDERED: Ondansetron HCl/PF 4 MG/2 ML Vial ONE (12:21)
[2017-06-20] MEDS ORDERED: Diltiazem HCl 125 MG, Admixture Fee 1 EACH in Sodium Chloride 0.9% 100 ML IVPB SCH (13:30)
[2017-06-20] MEDS ORDERED: Chloraseptic Spray 180 ml Bottle PO PRN (13:34)
[2017-06-20] MEDS ORDERED: hydrALAZINE 20 MG/ML VIAL SLOW IVP PRN (13:34)
[2017-06-20] MEDS ORDERED: Artificial Tears 18 DROP/0.9 ML EA EYE PRN (13:34)
[2017-06-20] MEDS ORDERED: Ondansetron HCl/PF 4 MG/2 ML Vial IVP PRN (13:34)
[2017-06-20] MEDS ORDERED: Loratadine 10 MG TAB PO PRN (13:34)
[2017-06-20] MEDS ORDERED: Loperamide HCl 2 MG CAP PO PRN (13:34)
[2017-06-20] MEDS ORDERED: Acetaminophen 325 MG TAB PO PRN (13:34)
[2017-06-20] MEDS ORDERED: Milk Of Magnesia 30 ML UDCUP PO PRN (13:34)
[2017-06-20] MEDS ORDERED: Nitroglycerin 0.4 MG TAB (25 Tab Bottle) SL PRN (13:34)
[2017-06-20] MEDS ORDERED: Sodium Chloride 0.65% Nasal 44 ML BOT EA NARE PRN (13:34)
[2017-06-20] MEDS ORDERED: Mag-Al 1200 mg/1200 mg/30 ML UDCUP PO PRN (13:34)
[2017-06-20] MEDS ORDERED: Ondansetron ODT 4 MG TAB PO PRN (13:34)
[2017-06-20] MEDS ORDERED: Diabetic Tussin 200 MG/10 ML UDCUP PO PRN (13:34)
[2017-06-20] MEDS ORDERED: Zolpidem Tartrate 5 MG TAB PO PRN (13:34)
[2017-06-20] MEDS ORDERED: Eucerin (Mineral Oil/Petrolatum,White) 30 gm Jar TOP PRN (13:34)
[2017-06-20] MEDS ORDERED: Senokot 8.6 MG TAB PO PRN (13:34)
[2017-06-20] MEDS ORDERED: Diltiazem 125 MG in Sodium Chloride 0.9% 100 ML IVPB SCH ×2 (13:34→19:25)
--- NOTE | 2017-06-20 13:35 | CT ---
CTA OF THE CHEST AND ABDOMEN UTILIZING AORTIC DISSECTION PROTOCOL AND IV CONTRAST AND 3D REFORMATTED IMAGING: INDICATION: Complains of neck and head pain and disorientation. COMPARISON: CT of the chest, abdomen, and pelvis dated 06/12/17. FINDINGS: There has been interval enlargement of the bilateral pleural effusions, right greater than left. Sev ere emphysema persists. Cardiomegaly is similar. Pulmonary artery enlargement is stable. Ectasia o f the ascending aorta measuring up to 3.9 cm is similar. Aneurysmal dilatation of the aortic arch me asuring 3 cm is stable. Descending thoracic aorta measures 2.6 cm which is stable. Aneurysmal dilat ation of the distal thoracic aorta at the level of the hiatus measuring up to 4.6 cm is stable. Ther e is complete occlusion of the distal abdominal aorta at the level of the renal arteries. There is o cclusion of the left renal artery. High-grade stenosis involving portions of the splenic artery. St able endograft stent is seen within the SMA. There is chronic occlusion appearing involving the quincy c vasculature. There is diffuse anasarca. There is mild free fluid in the pelvis. There is an atro phic appearance of the left kidney which is stable. Osteopenia. There is thoracolumbar scoliosis. No definite acute fracture is evident. IMPRESSION: 1. Worsening bilateral pleural effusions and anasarca. 2. Stable aneurysmal dilatation of the arch and descending thoracic aorta. 3. Stable occlusion of the aorta at the level of the renal arteries. 4. 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 5. Stable emphysema. 6. Stable enlargement of the pulmonary arterial tree. POS: [facility]
[2017-06-20] MEDS ORDERED: ISOVUE-370 76%-LOCM 1 ML ONE (13:42)
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
[2017-06-20 15:33] LABS: Critical Call Chem Troponin I RESULT DECREASING; Troponin I 1.986 ng/mL (< 0.028)
[2017-06-20] MEDS: Furosemide 40 MG/4 ML VIAL SLOW IVP SCH (18:13)
[2017-06-20 18:17] LABS: Troponin I 2.411 ng/mL (< 0.028)
[2017-06-20] MEDS: Dronedarone HCl 400 MG TAB PO SCH (18:19)
[2017-06-20] MEDS: Cephalexin 250 MG CAP PO SCH ×2 (18:19→23:56)
[2017-06-20 20:04] VITALS: BMI 16.5
[2017-06-20] MEDS: Atorvastatin Calcium 20 MG TAB PO SCH (20:36)
[2017-06-20] MEDS: HYDROcodone/Acetaminophen 5/325 mg Tablet PO PRN (20:37)
[2017-06-20] MEDS: Budesonide 0.5 MG/2 ML NEB INH SCH (20:58)
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
[2017-06-20] MEDS ORDERED: Morphine 5 MG/ML SYRINGE SLOW IVP SCH (23:45)
[2017-06-20] MEDS ORDERED: Hydrocortisone Sod Succ/PF 100 mg/2 ml Vial IVP SCH (23:45)
--- NOTE | 2017-06-20 23:52 | RAD ---
PORTABLE CHEST: History: Shortness of breath. Hypertension. Comparison: Earlier today, 11:29 a.m. FINDINGS: Cardiomegaly is again noted. Mild vascular congestion. Interstitial prominence suggesting interstitia l edema. Evidence of small effusions. Pacemaker leads unchanged. Aortic calcification is prominent. IMPRESSION: Cardiomegaly with mild congestive change do not appear significantly different from the film earlier today. POS: [facility]
--- NOTE | 2017-06-21 04:36 | CON ---
DATE OF CONSULTATION: 06/20/2017 HISTORY: John Huertsa is a pleasant 87-year-old black female who has had multiple admissions in the past for atrial arrhythmias that are difficult to control. She just was discharged on 06/15/2017. D uring that admission, she underwent placement of a dual chamber pacemaker with atrial therapies. She also sent home on Multaq and Cardizem in hopes of suppressing her atrial arrhythmias. It was felt t hat she was not a good candidate for anticoagulation. She also has COPD on home oxygen. She came to the emergency room today due to palpitations, shortness of breath, dizziness, and discomf ort from the right side of her chest radiating around to her back. In the emergency room, she underw ent CT dissection protocol, which was negative for dissection. She had bilateral pleural effusions. We start intravenous Cardizem, which slowed her rate. PAST MEDICAL HISTORY: Hypertension, hyperlipidemia, diabetes, chronic kidney disease, multiple atria l arrhythmias, and anemia. MEDICATIONS: When she was last discharged 5 days ago - aspirin 81 daily, atorvastatin 20 daily, ceph alexin 500 t.i.d., diltiazem 240 CD q.a.m., Multaq 400 b.i.d., furosemide 40 daily, isosorbide mononi trate 30 daily, KCl 10 mEq daily. ALLERGIES: None. SOCIAL HISTORY: She does not smoke or drink. REVIEW OF SYSTEMS: A 12-point review of systems negative. PHYSICAL EXAMINATION: VITAL SIGNS: Blood pressure 121/88, pulse 93 and irregularly irregular. HEENT: PERRL. NECK: Supple. LUNGS: Chest reveals rhonchi bilaterally. CARDIOVASCULAR: S1 and S2 are normal without any S3 or S4. There is a 1/6 systolic murmur along the left sternal border. Carotid upstrokes normal. ABDOMEN: Normal bowel sounds, without tenderness or organomegaly. EXTREMITIES: Revealed no clubbing, cyanosis or edema. NEUROLOGIC: Grossly intact. LABORATORY DATA: Hemoglobin 9.0, hematocrit 29.3, white count 5300, platelets 114,000. INR 1.3. Sodium 138, potassium 5.2, chloride 102, carbon dioxide 24, BUN 27, creatinine 1.27. CK-MB 10.5, tro ponin I is up to 2.411. BNP 1053.9. IMPRESSION: 1. Probable non-ST segment elevation myocardial infarction. 2. Recurrent atrial arrhythmias. In 02/2013, she had atrial flutter ablation. 3. Status post dual-chamber pacemaker placement with atrial therapies; however, these could not be t urned on for another 3 months. 4. Poor anticoagulation candidate. 5. Hypertension. PLAN: She has had an increased troponin I and certainly this could be a non-STEMI or could be due to demand ischemia from her tachycardia. Her rate at present time has been slow with intravenous Cardi zem. Consideration may need to be given to AV node ablation. Further evaluation of her coronary art rg status may need to be evaluated and this will be deferred to Dr. Jeff who knows the patient well.
[2017-06-21] MEDS: Furosemide 40 MG/4 ML VIAL SLOW IVP SCH (05:19)
[2017-06-21] MEDS: Cephalexin 250 MG CAP PO SCH ×3 (05:19→17:08)
[2017-06-21 05:41] LABS: #Eosinphils 0.1 thou/uL (0.0-0.7); #Monocytes 0.8 thou/uL (0.11-0.59); #Neutrophils 8.5 thou/uL (1.40-6.50); %Basophils 0.1 % (0.0-1.0); %Eosinophils 0.6 % (0.0-10.0); %Lymphocytes 9.5 % (21.0-51.0); %Neutrophils 81.8 % (42.0-75.0); Hemoglobin 9.5 g/dL (12.0-16.0); Mean Corpuscular HGB CONC 30.1 g/dL (32.0-36.0); Mean Corpuscular Hemoglobin 30.9 pg (27.0-31.0); Mean Platelet Volume 9.6 fL (7.4-10.4); Platelet Count 128 thou/uL (130-400); RBC Distribution Width 15.6 % (11.5-14.5); Red Blood Cell (RBC) Count 3.06 mill/uL (4.20-5.40); White Blood Cell (WBC) Count 10.4 thou/uL (4.8-10.8)
[2017-06-21 05:50] LABS: ALT (SGPT) 21 U/L (8-55); AST (SGOT) 40 U/L (5-34); Albumin 3.4 g/dL (3.4-4.8); Alkaline Phosphatase 51 U/L (40-150); Anion Gap 22 mmol/L (10-20); BUN (Urea Nitrogen) 35 mg/dL (9.8-20.1); Bilirubin, Total 1.6 mg/dL (0.2-1.2); Calc. Creatinine Clearance 18 mL/min (70-130); Calcium 8.6 mg/dL (7.8-10.44); Carbon Dioxide 18 mmol/L (23-31); Chloride 104 mmol/L (98-107); Estimated GFR-MDRD 38; Globulin 2.5 g/dL (2.4-3.5); Glucose 116 mg/dL (83-110); Potassium 5.7 mmol/L (3.5-5.1); Protein, Total 5.9 g/dL (6.0-8.3); Sodium 138 mmol/L (136-145)
[2017-06-21] MEDS: Budesonide 0.5 MG/2 ML NEB INH SCH ×2 (08:12→19:49)
[2017-06-21] MEDS: Enoxaparin Sodium 40 MG/0.4 ML SYRINGE SC SCH (09:28)
[2017-06-21] MEDS: Dronedarone HCl 400 MG TAB PO SCH ×2 (09:29→17:08)
[2017-06-21] MEDS: Cyanocobalamin (Vitamin B-12) 1,000 MCG TAB PO SCH (09:29)
[2017-06-21] MEDS: Folic Acid 1 MG TAB PO SCH (09:30)
[2017-06-21] MEDS: Ferrous Sulfate 325 MG TAB PO SCH (09:30)
[2017-06-21] MEDS: Multivitamin W/ Minerals 1 TAB PO SCH (09:31)
--- NOTE | 2017-06-21 11:20 | PDOC.PN ---
- Subjective Encounter Start Date: 06/21/17 Encounter Start Time: 09:10 -: old records requested/rev daughter bedside, DNR confirmed again, pt does not want to go for CASSIE, patient wants comfort care and daughter also agreed, pt is upto her baseline, last night hypotensive and had code green - Objective Resuscitation Status: Resuscitation Status DNR:Do Not Resuscitate MAR Reviewed: Yes Vital Signs & Weight: Vital Signs (12 hours) Temp Pulse Resp BP Pulse Ox 06/21/17 08:13 92 20 98 06/21/17 08:12 92 20 98 06/21/17 08:00 97.6 F 122 H 20 106/68 06/21/17 04:00 97.4 F L 73 24 H 93/64 06/21/17 00:00 105 H 24 H 86/0 L 93 L Weight Admit Weight 96 lb 6.4 oz Weight 96 lb 6.4 oz I&O: 06/20/17 06/21/17 06/22/17 06:59 06:59 06:59 Intake Total 105 Output Total 200 Balance -95 Result Diagrams: 06/21/17 04:25 06/21/17 04:25 Additional Labs: Accuchecks 06/20/17 06/20/17 23:21 20:34 POC Glucose 184 H 166 H Radiology Reviewed by me: Yes EKG Reviewed by me: Yes (Aflutter) Phys Exam - Physical Examination Constitutional: NAD HEENT: PERRLA, moist MMs, sclera anicteric Neck: no JVD, supple Respiratory: no wheezing, no rhonchi basal rales, reduced air entry Cardiovascular: no significant murmur, irregular Gastrointestinal: soft, non-tender, no distention, positive bowel sounds Musculoskeletal: no edema, pulses present Neurological: moves all 4 limbs Lymphatic: no nodes Psychiatric: normal affect Skin: no rash, normal turgor Dx/Plan (1) Acute and chronic respiratory failure with hypoxia Code(s): J96.21 - ACUTE AND CHRONIC RESPIRATORY FAILURE WITH HYPOXIA Status: Acute Comment: (2) Acute on chronic diastolic heart failure Code(s): I50.33 - ACUTE ON CHRONIC DIASTOLIC (CONGESTIVE) HEART FAILURE Status : Acute Comment: continue gentle diuresis (3) Atrial flutter with rapid ventricular response Code(s): I48.92 - UNSPECIFIED ATRIAL FLUTTER Status: Acute (4) Hyperkalemia Code(s): E87.5 - HYPERKALEMIA Status: Acute (5) Hypotension Status: Resolved (6) Non-ST elevation myocardial infarction (NSTEMI), type 2 Code(s): I21.A1 - MYOCARDIAL INFARCTION TYPE 2 Status: Acute Comment: due to demand ischemia due to aflutter (7) Pacemaker Code(s): Z95.0 - PRESENCE OF CARDIAC PACEMAKER Status: Acute (8) COPD (chronic obstructive pulmonary disease) Status: Chronic Comment: (9) Chronic kidney disease stage 3 Code(s): N18.3 - CHRONIC KIDNEY DISEASE, STAGE 3 (MODERATE) Status: Chronic (10) Dyslipidemia Code(s): E78.5 - HYPERLIPIDEMIA, UNSPECIFIED Status: Chronic (11) Hypertension Code(s): I10 - ESSENTIAL (PRIMARY) HYPERTENSION Status: Chronic (12) Macrocytic anemia Code(s): D53.9 - NUTRITIONAL ANEMIA, UNSPECIFIED Status: Chronic (13) Protein-calorie malnutrition, moderate Code(s): E44.0 - MODERATE PROTEIN-CALORIE MALNUTRITION Status: Chronic (14) Pulmonary HTN Code(s): I27.2 - OTHER SECONDARY PULMONARY HYPERTENSION * DO NOT USE * Status : Chronic Comment: (15) Thrombocytopenia Code(s): D69.6 - THROMBOCYTOPENIA, UNSPECIFIED Status: Chronic Comment: - Plan cont current plan of care, plan discussed w/ family * at this point will consult palliative care for goal of care * she may need home hospice * cardiology and EP following * reduce lasix dose * DC IMdure * medication reviewed as below * symptomatic treatment * plan updated to daughter * prognosis is guarded. Review of Systems - Review of Systems ENT: negative: Ear Pain, Ear Discharge, Nose Pain, Nose Discharge, Nose Congestion, Mouth Pain, Mouth Swelling, Throat Pain, Throat Swelling, Other Respiratory: Shortness of Breath, SOB with Excertion. negative: Cough, Dry, Hemoptysis, Pleuritic Pain, Sputum, Wheezing Cardiovascular: palpitations. negative: chest pain, orthopnea, paroxysmal nocturnal dyspnea, edema, light headedness, other Gastrointestinal: negative: Nausea, Vomiting, Abdominal Pain, Diarrhea, Constipation, Melena, Hematochezia, Other Genitourinary: negative: Dysuria, Frequency, Incontinence, Hematuria, Retention , Other Musculoskeletal: negative: Neck Pain, Shoulder Pain, Arm Pain, Back Pain, Hand Pain, Leg Pain, Foot Pain, Other - Medications/Allergies Allergies/Adverse Reactions: Allergies Allergy/AdvReac Type Severity Reaction Status Date / Time No Known Allergies Allergy Verified 06/12/17 23:33 Medications: Current Medications Acetaminophen (Tylenol) 650 mg PO Q4H PRN PRN Reason: Headache/Fever or Pain Hydrocodone Bitart/Acetaminophen ([place] 5/325) 1 tab PO Q4H PRN PRN Reason: Moderate Pain (4-6) Last Admin: 06/20/17 20:37 Dose: 1 tab Al Hydroxide/Mg Hydroxide (Maalox) 30 ml PO Q6H PRN PRN Reason: Heartburn or Indigestion Albuterol/Ipratropium (Duoneb) 3 ml NEB [id number] PRN PRN Reason: SOB &/or Wheezing Last Admin: 06/21/17 08:13 Dose: 3 ml Artificial Tears (Tears Naturale) 0 drop EA EYE PRN PRN PRN Reason: Dry Eyes Aspirin (Aspirin Chewable) 81 mg PO DAILY [facility] Last Admin: 06/21/17 09:30 Dose: 81 mg Atorvastatin Calcium (Lipitor) 20 mg PO HS [facility] Last Admin: 06/20/17 20:36 Dose: 20 mg Budesonide (Pulmicort Neb Solution) 0.5 mg INH BID-[facility] Last Admin: 06/21/17 08:12 Dose: 0.5 mg Cephalexin (Keflex) 250 mg PO Q6HR [facility] Last Admin: 06/21/17 05:19 Dose: 250 mg Cyanocobalamin (Vitamin B-12) 1,000 mcg PO DAILY [facility] Last Admin: 06/21/17 09:29 Dose: 1,000 mcg Dronedarone (Multaq) 400 mg PO BID[facility] Last Admin: 06/21/17 09:29 Dose: 400 mg Enoxaparin Sodium (Lovenox) 40 mg SC 0900 [facility] Last Admin: 06/21/17 09:28 Dose: 40 mg Ferrous Sulfate (Feosol) 325 mg PO QAM-[facility] Last Admin: 06/21/17 09:30 Dose: 325 mg Folic Acid (Folvite) 1 mg PO DAILY [facility] Last Admin: 06/21/17 09:30 Dose: 1 mg Furosemide (Lasix) 20 mg SLOW IVP 0600,1400 RUPESH Guaifenesin (Robitussin Sf) 200 mg PO Q4H PRN PRN Reason: Cough Hydralazine HCl (Apresoline) 10 mg SLOW IVP Q4H PRN PRN Reason: Systolic BP > 180 Diltiazem HCl 125 mg/ Sodium (Chloride) 125 mls @ 7.5 mls/hr IVPB INF RUPESH; 7.5 MG/HR PRN Reason: Protocol Iron/Minerals/Multivitamins (Theragran M) 1 tab PO DAILY [facility] Last Admin: 06/21/17 09:31 Dose: 1 tab Loperamide HCl (Imodium) 2 mg PO PRN PRN PRN Reason: Diarrhea/Loose Stools Loratadine (Claritin) 10 mg PO DAILYPRN PRN PRN Reason: Sinus Symptoms Magnesium Hydroxide (Milk Of Magnesium) 30 ml PO DAILYPRN PRN PRN Reason: Constipation Mineral Oil/White Petrolatum (Eucerin Cream) 0 gm TOP BIDPRN PRN PRN Reason: Dry Skin Nitroglycerin (Nitrostat) 0.4 mg SL Q5MIN PRN PRN Reason: Chest Pain Ondansetron HCl (Zofran Odt) 4 mg PO Q6H PRN PRN Reason: Nausea/Vomiting Ondansetron HCl (Zofran) 4 mg IVP Q6H PRN PRN Reason: Nausea/Vomiting Pantoprazole Sodium (Protonix) 40 mg PO DAILY [facility] Last Admin: 06/21/17 09:29 Dose: 40 mg Phenol (Chloraseptic Zephyr 180 Ml Bot) 0 ml PO PRN PRN PRN Reason: Sore Throat Senna (Senokot) 2 tab PO HSPRN PRN PRN Reason: Constipation Sodium Chloride ([place] Nasal Zephyr 0.65%) 0 ml EA NARE QIDPRN PRN PRN Reason: Nasal Congestion Sodium Chloride (Flush - Normal Saline) 10 ml IVF Q12HR [facility] Last Admin: 06/21/17 09:32 Dose: 10 ml Sodium Chloride (Flush - Normal Saline) 10 ml IVF PRN PRN PRN Reason: Saline Flush Zolpidem Tartrate (Ambien) 5 mg PO HSPRN PRN PRN Reason: Insomnia
[2017-06-21] MEDS: Furosemide 20 MG/2 ML VIAL SLOW IVP SCH (14:45)
--- NOTE | 2017-06-21 15:28 | PDOC.CTH ---
<Mana Ortiz - Last Filed: 06/21/17 15:36> Cardiology Progress Note - Subjective EP progress note Patient resting comfortably in bed with family bedside. She remains confused, short of breath, with palpitations and heart racing. The family has decided to transition to hospice and have refused CASSIE today. - Objective Vital Signs Temp Pulse Resp BP Pulse Ox 06/21/17 11:40 98 F 130 H 24 H 110/78 06/21/17 11:30 95 06/21/17 08:13 92 20 98 06/21/17 08:12 92 20 98 06/21/17 08:00 97.6 F 122 H 20 106/68 06/21/17 04:00 97.4 F L 73 24 H 93/64 Admit Weight 96 lb 6.4 oz Weight 96 lb 6.4 oz 06/20/17 06/21/17 06/22/17 06:59 06:59 06:59 Intake Total 105 Output Total 200 Balance -95 - Physical Examination General/Neuro: NAD, other: (varying levels of confusion) Neck: no JVD present Lungs: unlabored respirations Abdomen: NT/ND Extremities: + edema B - Telemetry Telemetry Rhythm: A. Flutter RVR - Labs Result Diagrams: 06/21/17 04:25 06/21/17 04:25 Troponin/CKMB - Assessment/Plan Paroxysmal atrial flutter with RVR- Patient had pacemaker placed quite recently. Patient is not anticoagulated for her arrhythmias given persistent & significantly low platelet counts. For this reason we cannot safely initiate ATP therapies as a non invasive method to restore NSR without a CASSIE prior. Family continues to refuse procedure. Ideally we would allow the PPM/ leads to heal then perform AV node ablation to stop her RVR, preventing these recurrent hospitalizations for AF/RVR. This was explained to the family. They will consider this. Ultimately, we respect the wishes of the patient & her family but feel even agreeing to a CASSIE with ATP therapies may greatly improve the management of her AF and terminate RVR episodes. <Baltazar Lamb - Last Filed: 06/21/17 18:29> Cardiology Progress Note - Objective Vital Signs Temp Pulse Resp BP Pulse Ox 06/21/17 16:00 96.9 F L 136 H 16 157/61 H 06/21/17 11:40 98 F 130 H 24 H 110/78 06/21/17 11:30 95 06/21/17 08:13 92 20 98 06/21/17 08:12 92 20 98 06/21/17 08:00 97.6 F 122 H 20 106/68 Admit Weight 96 lb 6.4 oz Weight 96 lb 6.4 oz 06/20/17 06/21/17 06/22/17 06:59 06:59 06:59 Intake Total 105 Output Total 200 Balance -95 - Labs Result Diagrams: 06/21/17 04:25 06/21/17 04:25 Troponin/CKMB CK-MB (CK-2) 10.5 ng/mL (0-6.6) H* 06/20/17 11:02 Troponin I 2.411 ng/mL (< 0.028) H* 06/20/17 17:37 Attending Addendum - Attending Addendum I personally evaluated the patient and discussed the management with Ms Warecoy.
[2017-06-21] MEDS: HYDROcodone/Acetaminophen 5/325 mg Tablet PO PRN (17:07)
[2017-06-21] MEDS ORDERED: Morphine 5 MG/ML SYRINGE SLOW IVP PRN (17:46)
[2017-06-21] MEDS: Atorvastatin Calcium 20 MG TAB PO SCH (20:36)
[2017-06-22] MEDS: HYDROcodone/Acetaminophen 5/325 mg Tablet PO PRN (03:29)
[2017-06-22 04:51] LABS: Anion Gap 17 mmol/L (10-20); BUN (Urea Nitrogen) 43 mg/dL (9.8-20.1); Calc. Creatinine Clearance 15 mL/min (70-130); Calcium 8.8 mg/dL (7.8-10.44); Carbon Dioxide 25 mmol/L (23-31); Chloride 101 mmol/L (98-107); Estimated GFR-MDRD 31; Glucose 87 mg/dL (83-110); Potassium 5.8 mmol/L (3.5-5.1); Sodium 137 mmol/L (136-145)
[2017-06-22 05:00] LABS: Acanthocytes MODERATE= 6-15 cells (100X) (None Seen); Band 1 % (5-11); Hemoglobin 8.6 g/dL (12.0-16.0); Lymphocytes 10 % (21-51); MDiff Complete? YES; Mean Corpuscular HGB CONC 31.3 g/dL (32.0-36.0); Mean Corpuscular Hemoglobin 31.1 pg (27.0-31.0); Mean Corpuscular Volume 99.3 fl (81.0-99.0); Mean Platelet Volume 9.2 fL (7.4-10.4); Monocytes 7 % (0-10); Neutrophil 82 % (42-75); Nucleated RBC 8 % (0); Platelet Count 143 thou/uL (130-400); RBC Distribution Width 15.5 % (11.5-14.5); Red Blood Cell (RBC) Count 2.76 mill/uL (4.20-5.40); White Blood Cell (WBC) Count 6.5 thou/uL (4.8-10.8)
[2017-06-22] MEDS: Cephalexin 250 MG CAP PO SCH ×2 (06:50)
[2017-06-22] MEDS: Furosemide 20 MG/2 ML VIAL SLOW IVP SCH (06:50)
[2017-06-22] MEDS: Budesonide 0.5 MG/2 ML NEB INH SCH (06:54)
[2017-06-22] MEDS: Ferrous Sulfate 325 MG TAB PO SCH (07:55)
[2017-06-22] MEDS: Cyanocobalamin (Vitamin B-12) 1,000 MCG TAB PO SCH (07:55)
[2017-06-22] MEDS: Dronedarone HCl 400 MG TAB PO SCH (07:55)
[2017-06-22] MEDS: Multivitamin W/ Minerals 1 TAB PO SCH (07:56)
[2017-06-22] MEDS: Enoxaparin Sodium 40 MG/0.4 ML SYRINGE SC SCH (07:56)
[2017-06-22] MEDS: Folic Acid 1 MG TAB PO SCH (07:56)
[2017-06-22 11:06] VITALS: BP 85/64; TEMP 97.9
--- NOTE | 2017-06-22 11:44 | DIS ---
DATE OF ADMISSION: 06/20/2017 DATE OF DISCHARGE: 06/22/2017 PRIMARY CARE PHYSICIAN: Dr. Trujillo. DISCHARGE DISPOSITION: Home with home hospice. PRIMARY DISCHARGE DIAGNOSES: 1. Acute and chronic respiratory failure with hypoxia. 2. Acute on chronic diastolic heart failure. 3. Atrial flutter with rapid ventricular response. 4. Hyperkalemia. 5. Non-ST elevation myocardial infarction, type 2, due to demand ischemia. 6. Hypotension, resolved. SECONDARY DISCHARGE DIAGNOSES: Chronic thrombocytopenia; pulmonary hypertension; moderate protein-ca juancho malnutrition; macrocytic anemia; hypertension; dyslipidemia; chronic obstructive pulmonary dise ase; chronic kidney disease, stage 3; recent history of pacemaker placement; chronic atrial flutter; physical deconditioning. PRIMARY PROCEDURE/OPERATION: None. RADIOLOGICAL INVESTIGATION: Chest x-ray on admission showed cardiomegaly and pulmonary edema. 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 Repeat chest x-ray showed pulmonary vascular congestion. SIGNIFICANT LABORATORY DATA: WBC 6.5, hemoglobin 8.6, MCV 99.3, platelets 143. INR 1.3. Sodium 137 , potassium 5.8, BUN 43, creatinine 1.88, calcium 8.8, AST 40, ALT 21, alkaline phosphatase 51, album in 3.4, troponin 2.41. Blood culture negative and influenza negative. DISCHARGE MEDICATIONS: The patient will continue previous medications. Aspirin 81 mg p.o. daily, Li pitor 20 mg p.o. daily, Keflex 500 mg p.o. t.i.d. (finish complete course of treatment), Cardizem-CD 240 mg p.o. daily, Multaq 400 mg p.o. b.i.d., Lasix 40 mg p.o. daily, Imdur 30 mg p.o. daily, potassi um chloride 10 mEq p.o. daily. CONTRAINDICATIONS: This patient is not on chronic anticoagulation, because of her thrombocytopenia a nd noncompliance and risk of bleeding, that is why not offered. CODE STATUS: DNR. This was discussed during this admission. INPATIENT CONSULTANTS: Dr. Swann saw this patient while in hospital. Dr. Baltazar Lamb was consult ed while in hospital. TEST RESULTS PENDING ON DISCHARGE: None. ALLERGIES: No known drug allergy. DISCHARGE PLAN: Post hospital, the patient will be discharged home with home hospice for comfort car e. HOSPITAL COURSE: An 87-year-old female, who has chronic respiratory failure, chronic diastolic heart failure, and chronic atrial flutter. Her atrial flutter is very difficult to control. She recently required pacemaker procedure. Her pacemaker site was bruised and tender and that is why we continue d her antibiotic therapy, which was given on the day of discharge from previous hospitalization. While in hospital, this patient was having acute on chronic respiratory failure. She was having acut e on chronic diastolic heart failure and she had atrial flutter with rapid ventricular response. She was admitted to telemetry floor. She was treated with a Cardizem drip. Cardiology was consulted fo r abnormal troponin and they recommended that abnormal troponin was related with demand ischemia from atrial flutter. Regarding atrial flutter, we consulted Dr. Lamb and he was planning to do a transes ophageal echocardiography and ablation, but this patient refused to go for that. This patient states that she does not want any kind of aggressive intervention, but does want more comfort care and medi maki treatment. This patient had a code green during nighttime, because she developed hypotension, and at that time, we discussed with the patient's daughter and the patient and she changed her code status to DNR. Thi s patient's daughter also agreed with hospice placement. We are consulting hospice team and patient was approved for outpatient hospice care. This patient does not have any improvement in her condition. Her prognosis is very poor. She may qu alify for inpatient hospice care in the future. Currently, the patient is very weak. She is up to h er baseline. She still refuses treatment and she does not want to go for any kind of intervention. PHYSICAL EXAMINATION: The patient is seen and examined at bedside today. VITAL SIGNS: Currently temperature 98.5, pulse 129 and irregular, respiratory rate 20, saturation 91 % on 3 liters of oxygen, blood pressure 98/71, weight 96 pounds. GENERAL: The patient is currently alert, awake, chronically ill, in no acute distress. HEAD: Normocephalic, atraumatic. EYES: Pupils round, reactive to light. Extraocular muscles intact. ENT: Oropharynx within normal limits. Moist mucous membranes. No oral lesion. No pharyngeal eryth daniel, no exudate. NECK: Supple, no JVD, no thyromegaly, no carotid bruits. LUNGS: Clear to auscultation without any rhonchi. CARDIAC: S1 and S2, irregular, tachycardia, no murmur, no gallop, no rub. ABDOMEN: Soft, benign. EXTREMITIES: No edema. NEUROLOGIC: Nonfocal examination. This patient's long-term prognosis is very poor, and we are discharging this patient to home with [facility] hospice, as there is nothing to offer while in hospital, as patient has continued to refuse all kin d of treatments. Total time spent on discharge day, to arrange discharge to home with home hospice, is more than 30 mi nutes.
== END 2017-06-22 10:59 | disposition hospice, home (50) | DRG 280 ==
LOC: ERS 10:04 → ERHOLD 13:17 → 2NO 16:11 → T4-B 06-21 22:20
PROVIDERS: ADMIT Internal Medicine; ATTEND Internal Medicine
DX: I13.0 Hypertensive heart and chronic kidney disease with heart failure and stage 1 through stage 4 chronic kidney disease, or unspecified chronic kidney disease (principal); I50.33 Acute on chronic diastolic (congestive) heart failure; I21.A1 Myocardial infarction type 2; J96.21 Acute and chronic respiratory failure with hypoxia; E44.0 Moderate protein-calorie malnutrition; D69.6 Thrombocytopenia, unspecified; E11.22 Type 2 diabetes mellitus with diabetic chronic kidney disease; N18.3 Chronic kidney disease, stage 3 (moderate); E11.649 Type 2 diabetes mellitus with hypoglycemia without coma; I48.92 Unspecified atrial flutter; J44.1 Chronic obstructive pulmonary disease with (acute) exacerbation; I36.1 Nonrheumatic tricuspid (valve) insufficiency; K21.9 Gastro-esophageal reflux disease without esophagitis; D53.9 Nutritional anemia, unspecified; Z66 Do not resuscitate; I27.20 Pulmonary hypertension, unspecified; I34.0 Nonrheumatic mitral (valve) insufficiency; Z99.81 Dependence on supplemental oxygen; Z87.891 Personal history of nicotine dependence; Z95.0 Presence of cardiac pacemaker; Z79.82 Long term (current) use of aspirin; Z79.899 Other long term (current) drug therapy
CPT/HCPCS: 36415; 36416; 71045; 71275; 80048; 80053; 82550; 82553; 83690; 83735; 83880; 84484; 85025; 85610; 85730; 87040; 93005; 94640; 94760; 96361; 96365; 96366; 96375; 96376; J2270; A4216; J1650; J1720; J1940; J2405; J7050; J7620; J7626